=== PATIENT | female | born 1940 | race Caucasian/White ===

== ENCOUNTER 2017-05-07 09:12 | Observation (INO) | payer MEDICARE, OTHER ==
--- NOTE | 2017-05-07 09:34 | ER Document Report ---
ED Medical Screen (RME) - General Chief Complaint: Chest Pain > 30 Stated Complaint: CHEST PAIN Time Seen by Provider: 05/07/17 09:31 TRAVEL OUTSIDE OF THE [place] IN LAST 30 DAYS: No - HPI Patient complains to provider of: Chest Pain Onset: Other - 5 days Quality of pain: Achy Severity: Moderate Pain Level: 3 Exacerbated by: Supine Relieved by: Denies Similar symptoms previously: Yes Notes: 05/07/17 09:32 Patient is a 76-year-old female with a history of coronary artery disease as well as breast cancer, who presents to the emergency room complaining of left- sided chest pain just below her left breast this been going on for the past 4-5 days, she states it is worse when she tries to lay down flat at night and has to sleep on several pillows at night because of the discomfort, she reports a history of [place] in 1997 with stent placement a few years later, breast cancer with a right-sided mastectomy, she denies any cough, cold or congestion, no fever or chills, patient is a former smoker Care is [facility], cardiology is Dr. Parry - Related Data Smoking: Quit greater than 1 year Allergies/Adverse Reactions: amoxicillin [Amoxicillin] Allergy (Severe, Verified 05/07/17 09:14) Hives levofloxacin [From Levaquin] Allergy (Intermediate, Verified 05/07/17 09:14) kidney pain Past Medical History - Past Medical History Cardiac Medical History: Reports: Hx Coronary Artery Disease, Hx Heart Attack - 1997, Hx Hypertension Pulmonary Medical History: Reports: Hx Pneumonia Denies: Hx Asthma, Hx Bronchitis, Hx COPD Neurological Medical History: Denies: Hx Cerebrovascular Accident, Hx Seizures Renal/ Medical History: Denies: Hx Peritoneal Dialysis GI Medical History: Reports: Hx Hiatal Hernia. Denies: Hx Hepatitis, Hx Ulcer Musculoskeltal Medical History: Reports Hx Arthritis Infectious Medical History: Denies: Hx Hepatitis Past Surgical History: Reports: Hx Hysterectomy, Hx Mastectomy - restricted right side. Denies: Hx Open Heart Surgery, Hx Pacemaker - Immunizations Hx Diphtheria, Pertussis, Tetanus Vaccination: No - unsure Physical Exam - Vital signs Vitals: Temp Pulse Resp BP Pulse Ox 98.1 F 69 18 137/76 H 98 05/07/17 09:17 05/07/17 09:17 05/07/17 09:17 05/07/17 09:17 05/07/17 09:17 Course - Vital Signs Vital signs: Temp Pulse Resp BP Pulse Ox 98.1 F 69 18 137/76 H 98 05/07/17 09:17 05/07/17 09:17 05/07/17 09:17 05/07/17 09:17 05/07/17 09:17
--- NOTE | 2017-05-07 09:52 | EKG REPORT ---
SEVERITY:- BORDERLINE ECG - SINUS RHYTHM BORDERLINE INFERIOR Q WAVES : Confirmed by: Jackie Perez 07-May-2017 09:51:52
--- NOTE | 2017-05-07 09:59 | RADIOLOGY REPORT (SQ) ---
EXAM DESCRIPTION: CHEST PA/LAT COMPLETED DATE/TIME: 05/07/2017 9:48 am REASON FOR STUDY: chest pain COMPARISON: January 2016 EXAM PARAMETERS: NUMBER OF VIEWS: two views TECHNIQUE: Digital Frontal and Lateral radiographic views of the chest acquired. RADIATION DOSE: NA LIMITATIONS: none FINDINGS: LUNGS AND PLEURA: No opacities, masses or pneumothorax. No pleural effusion. MEDIASTINUM AND HILAR STRUCTURES: No masses or contour abnormalities. HEART AND VASCULAR STRUCTURES: Heart normal size. No evidence for failure. BONES: No acute findings. HARDWARE: Surgical clips are again identified in the right axillary region. OTHER: No other significant finding. IMPRESSION: NO SIGNIFICANT RADIOGRAPHIC FINDING IN THE CHEST. TECHNICAL DOCUMENTATION: JOB ID: [id number] [employer]- All Rights Reserved
[2017-05-07 10:08] LABS: ABSOLUTE BASOPHILS # (AUTO) 0.1 10^3/uL (0.0-0.2); ABSOLUTE EOSINOPHILS # (AUTO) 0.1 10^3/uL (0.0-0.6); ABSOLUTE LYMPHOCYTES (AUTO) 1.3 10^3/uL (0.5-4.7); ABSOLUTE MONOCYTES (AUTO) 0.6 10^3/uL (0.1-1.4); BASOPHILS % (AUTO) 1.1 % (0-2); EOSINOPHILS % (AUTO) 1.9 % (0-6); HEMATOCRIT 41.6 % (36.0-47.0); HEMOGLOBIN 13.9 g/dL (12.0-15.5); HGB HCT DIFFERENCE 0.1; LYMPHOCYTES % (AUTO) 18.5 % (13-45); MEAN CORPUSCULAR HEMOGLOBIN 31.5 pg (27.0-33.4); MEAN CORPUSCULAR HGB CONC 33.4 g/dL (32.0-36.0); MEAN CORPUSCULAR VOLUME 94 fl (80-97); PROTHROMBIN TIME 12.6 SEC (11.4-15.4); RED BLOOD COUNT 4.41 10^6/uL (3.72-5.28); RED CELL DISTRIBUTION WIDTH 12.9 % (11.5-14.0); SEGMENTED NEUTROPHILS % (AUTO) 70.5 % (42-78); WHITE BLOOD COUNT 7.1 10^3/uL (4.0-10.5)
[2017-05-07 10:25] LABS: ALANINE AMINOTRANSFERASE 23 U/L (9-52); ALBUMIN 4.2 g/dL (3.5-5.0); ALKALINE PHOSPHATASE 56 U/L (38-126); ANION GAP 11 (5-19); ASPARTATE AMINO TRANSFERASE 25 U/L (14-36); BILIRUBIN,DIRECT 0.3 mg/dL (0.0-0.4); BILIRUBIN,TOTAL 0.5 mg/dL (0.2-1.3); BLOOD UREA NITROGEN 11 mg/dL (7-20); CALCIUM 10.2 mg/dL (8.4-10.2); CARBON DIOXIDE 29 mmol/L (22-30); CHLORIDE 106 mmol/L (98-107); CREATINE KINASE 35 U/L (30-135); CREATININE RESULT 0.71 mg/dL (0.52-1.25); GLUCOSE 90 mg/dL (75-110); POTASSIUM 4.4 mmol/L (3.6-5.0); SODIUM 145.7 mmol/L (137-145)
[2017-05-07 10:37] LABS: CREATINE KINASE MB 0.41 ng/mL (<4.55)
[2017-05-07 10:40] LABS: TROPONIN I < 0.012 ng/mL
--- NOTE | 2017-05-07 10:50 | ER Document Report ---
ED General - General Chief Complaint: Chest Pain > 30 Stated Complaint: CHEST PAIN Time Seen by Provider: 05/07/17 09:31 Mode of Arrival: Ambulatory Information source: Patient Notes: 76-year-old female presents with complaints of chest pain. Patient notes she has a history of [place] with stent. Patient is on Plavix denies any fevers or chills nausea vomiting or diarrhea TRAVEL OUTSIDE OF THE [place] IN LAST 30 DAYS: No - HPI Onset: Just prior to arrival Onset/Duration: Sudden Quality of pain: Pressure Severity: Mild Pain Level: 1 Associated symptoms: Chest pain Exacerbated by: Denies Relieved by: Denies Similar symptoms previously: Yes Recently seen / treated by doctor: Yes - Related Data Allergies/Adverse Reactions: amoxicillin [Amoxicillin] Allergy (Severe, Verified 05/07/17 09:14) Hives levofloxacin [From Levaquin] Allergy (Intermediate, Verified 05/07/17 09:14) kidney pain Past Medical History - Social History Smoking Status: Never Smoker Cigarette use (# per day): No Chew tobacco use (# tins/day): No Smoking Education Provided: No Family History: CAD Patient has suicidal ideation: No Patient has homicidal ideation: No - Past Medical History Cardiac Medical History: Reports: Hx Coronary Artery Disease, Hx Heart Attack - 1997, Hx Hypertension Pulmonary Medical History: Reports: Hx Pneumonia Denies: Hx Asthma, Hx Bronchitis, Hx COPD Neurological Medical History: Denies: Hx Cerebrovascular Accident, Hx Seizures Renal/ Medical History: Denies: Hx Peritoneal Dialysis GI Medical History: Reports: Hx Hiatal Hernia. Denies: Hx Hepatitis, Hx Ulcer Musculoskeltal Medical History: Reports Hx Arthritis Infectious Medical History: Denies: Hx Hepatitis Past Surgical History: Reports: Hx Hysterectomy, Hx Mastectomy - restricted right side. Denies: Hx Open Heart Surgery, Hx Pacemaker - Immunizations Hx Diphtheria, Pertussis, Tetanus Vaccination: No - unsure Hx Pneumococcal Vaccination: 08/26/13 Review of Systems - Review of Systems Notes: REVIEW OF SYSTEMS: CONSTITUTIONAL : Denies fever, chills, or sweats. Denies recent illness. EENT: Denies eye, ear, throat, or mouth pain or symptoms. Denies nasal or sinus congestion or discharge. Denies throat, tongue, or mouth swelling or difficulty swallowing. CARDIOVASCULAR: Chest RESPIRATORY: Denies cough, cold, or chest congestion. Denies shortness of breath, difficulty breathing, or wheezing. GASTROINTESTINAL: Denies abdominal pain or distention. Denies nausea, vomiting , or diarrhea. Denies blood in vomitus, stools, or per rectum. Denies black, tarry stools. Denies constipation. GENITOURINARY: Denies difficulty urinating, painful urination, burning, frequency, blood in urine, or discharge. FEMALE GENITOURINARY: Denies vaginal bleeding, heavy or abnormal periods, irregular periods. Denies vaginal discharge or odor. MUSCULOSKELETAL: Denies back or neck pain or stiffness. Denies joint pain or swelling. SKIN: Denies rash, lesions or sores. HEMATOLOGIC : Denies easy bruising or bleeding. LYMPHATIC: Denies swollen, enlarged glands. NEUROLOGICAL: Denies confusion or altered mental status. Denies passing out or loss of consciousness. Denies dizziness or lightheadedness. Denies headache. Denies weakness or paralysis or loss of use of either side. Denies problems with gait or speech. Denies sensory loss, numbness, or tingling. Denies seizures. PHYSICAL EXAMINATION: GENERAL: Well-appearing, well-nourished and in no acute distress. HEAD: Atraumatic, normocephalic. EYES: Pupils equal round and reactive to light, extraocular movements intact, conjunctiva are normal. ENT: Nares patent, oropharynx clear without exudates. Moist mucous membranes. NECK: Normal range of motion, supple without lymphadenopathy LUNGS: Breath sounds clear to auscultation bilaterally and equal. No wheezes rales or rhonchi. HEART: Regular rate and rhythm without murmurs ABDOMEN: Soft, nontender, nondistended abdomen. No guarding, no rebound. No masses appreciated. Female : deferred Musculoskeletal: Normal range of motion, no pitting or edema. No cyanosis. NEUROLOGICAL: Cranial nerves grossly intact. Normal speech, normal gait. Normal sensory, motor exams PSYCH: Normal mood, normal affect. SKIN: Warm, Dry, normal turgor, no rashes or lesions noted. PSYCHIATRIC: Denies anxiety or stress. Denies depression, suicidal ideation, or homicidal ideation. ALL OTHER SYSTEMS REVIEWED AND NEGATIVE. Dictation was performed using [employer] voice recognition software Physical Exam - Vital signs Vitals: Temp Pulse Resp BP Pulse Ox 98.1 F 69 18 137/76 H 98 05/07/17 09:17 05/07/17 09:17 05/07/17 09:17 05/07/17 09:17 05/07/17 09:17 Course - Re-evaluation Re-evalutation: 05/07/17 16:19 My examination patient does admit to chest pain, she is in no distress at this time. She took a nitroglycerin last night which resolved her pain Patient has a stress test yearly however her it coordinator did not perform one this year yet will admit for observation for ACS rule out - Vital Signs Vital signs: Temp Pulse Resp BP Pulse Ox 98.0 F 66 16 131/66 H 100 05/07/17 14:04 05/07/17 14:04 05/07/17 14:04 05/07/17 14:04 05/07/17 14:04 - Laboratory Result Diagrams: 05/07/17 09:41 05/07/17 09:41 Laboratory results interpreted by me: 05/07/17 09:41 Sodium 145.7 H - Diagnostic Test Radiology reviewed: Image reviewed, Reports reviewed - EKG Interpretation by Me EKG shows normal: Sinus rhythm, [place], Intervals, QRS Complexes Discharge - Discharge Clinical Impression: Chest pain Qualifiers: Chest pain type: unspecified Qualified Code(s): R07.9 - Chest pain, unspecified HTN (hypertension) Qualifiers: Hypertension type: essential hypertension Qualified Code(s): I10 - Essential ( primary) hypertension Condition: Stable Disposition: ADMITTED OBSERVATION Admitting Provider: Hospitalist Unit Admitted: Telemetry
[2017-05-07] MEDS ORDERED: ACETAMINOPHEN 325 MG TABLET PO PRN (11:39)
[2017-05-07] MEDS ORDERED: MORPHINE SULFATE 10 MG/ML INJ IV PRN (12:19)
--- NOTE | 2017-05-07 12:19 | PDOC H&P ---
History of Present Illness Admission Date/PCP: 05/07/17 11:08 History of Present Illness: MAYA CUBA is a 76 year old white female past medical history significant for [place] status post stents back in 1997, hypertension, and history of breast cancer who presents to the service with complaints of chest pain. Patient's symptoms started on evening. It awoke her out of sleep. she Described the pain as a heavy weight sitting on her chest underneath her left breast. She and described it as a 5 out of 10 discomfort. At some point she felt that her left arm was hurting but did not associate that with her chest discomfort. She took nitroglycerin which offered her relief. She noticed that she could not sleep flat and ended up sleeping in a chair that night. Sunday Morning she felt better as well as on Sunday. Fortunately her pain returned on Sunday and she began having the same sensation that she rated at a 5 out of 10. She took another nitroglycerin which reduced her pain down to a 3 out of 10. At this point her pain began feeling more like a burning sensation. The patient notes that she has underlying GERD and that her GERD is somewhat controlled on Zantac. She does not recall injuring herself at all but she states that on Sunday she went to [facility] and lifted a case of water. she Denies a history of anxiety. She States that she had slight shortness of breath with these episodes. It usually follows with Dr. Wing. She usually sees him at least once a year. Her last stress test was a year and a half ago. It was normal. In the emergency room, the patient received EKG which was negative. Troponins were negative. Past Medical History Cardiac Medical History: Reports: Coronary Artery Disease, Myocardial Infarction - 1997, Hypertension Pulmonary Medical History: Reports: Pneumonia Malignancy Medical History: Reports: Breast Cancer - Status post right mastectomy. The patient has been in remission for 15 yrs GI Medical History: Reports: Hiatal Hernia Musculoskeltal Medical History: Reports: Arthritis Hematology: Reports: Anemia Past Surgical History Past Surgical History: Reports: Hysterectomy, Mastectomy - restricted right side Social History Information Source: Patient Smoking Status: Current Some Day Smoker - The patient quit years ago. she started at the age of 16. Frequency of Alcohol Use: None Hx Recreational Drug Use: No Hx Prescription Drug Abuse: No Family History Family History: CAD Parental Family History Reviewed: Yes Children Family History Reviewed: Yes Sibling(s) Family History Reviewed.: Yes Medication/Allergy Home Medications: Aspirin [Aspirin 81 mg Chewable Tablet] 1 tab PO DAILY 03/13/12 Metoprolol Tartrate [Lopressor 50 mg Tablet] 25 mg PO DAILY 12/10/13 Simvastatin [Zocor 10 mg Tablet] 10 mg PO QHS 12/10/13 Clopidogrel Bisulfate [Plavix 75 mg Tablet] 75 mg PO DAILY #30 tablet 12/11/13 Diltiazem HCl [Cardizem Cd 120 mg Capsule] 1 cap.sr PO DAILY 02/09/16 Ranitidine HCl [Zantac 150 mg Tablet] 150 mg PO BID #60 tablet 02/10/16 Ascorbic Acid [Vitamin C] 1 tab PO DAILY 05/12/16 Cyclobenzaprine HCl [Flexeril 10 mg Tablet] 1 tab PO DAILY 05/12/16 Hubbard-3 Fatty Acids [Fish Oil] 1 tab PO DAILY 05/12/16 Ubidecarenone [Co Q-10] 1 tab PO DAILY 05/12/16 Vitamin E 1 cap PO DAILY PRN 05/12/16 Allergies/Adverse Reactions: amoxicillin [Amoxicillin] Allergy (Severe, Verified 05/07/17 09:14) Hives levofloxacin [From Levaquin] Allergy (Intermediate, Verified 05/07/17 09:14) kidney pain Review of Systems Review of Systems: Illicit systems is pertinent as per HPI in addition to this the patient states that she has had trouble with dysuria and dribbling, cold intolerance, burning of the feet, occasional, the patient and occasional dizziness. She denies blood in the stool, blood in the urine, coughing up blood, vomiting blood, fevers, chills, nausea, vomiting, severe arthritis, diarrhea, and vision changes. Physical Exam Vital Signs: Temp Pulse Resp BP Pulse Ox 98.1 F 69 18 137/76 H 98 05/07/17 09:17 05/07/17 09:17 05/07/17 09:17 05/07/17 09:17 05/07/17 09:17 Physical Exam: General: Well-developed well-nourished appearing white female resting in bed currently in no acute distress HEENT: Normocephalic atraumatic. Trachea is midline. No submandibular lymphadenopathy. No thyromegaly. No Scleral icterus. Moist mucous membranes Heart: Regular rate and rhythm. No murmurs rubs or gallops. Lungs: Clear to auscultation bilaterally with equal rise and fall of the chest. Abdomen: Soft nontender nondistended. Active bowel sounds Extremities: No clubbing cyanosis or edema. 5 out of 5 strength in the upper and lower extremities bilaterally. Pulses are 2+ bilaterally. Neuro: Awake alert oriented. Cranial nerves II through XII are specifically intact. Results Impressions: Chest X-Ray 05/07/17 00:00 IMPRESSION: NO SIGNIFICANT RADIOGRAPHIC FINDING IN THE CHEST. Assessment & Plan - Diagnosis (1) Chest pain Qualifiers: Chest pain type: unspecified Qualified Code(s): R07.9 - Chest pain, unspecified Plan: We will bring the patient in for observation. Trend troponins. And obtain a stress test in the morning. RAFA as needed. Do not suspect acute coronary syndrome. If her stress test is negative, her discomfort may be related to uncontrolled GERD versus musculoskeletal discomfort (2) HTN (hypertension) Plan: Continue home medications after they are verified. (3) GERD (gastroesophageal reflux disease) Plan: Zantac. (4) History of breast cancer Plan: Patient is status post right mastectomy. She has been in remission for the last 15 years. - Time Time Spent: 30 to 50 Minutes - Inpatient Certification Based on my medical assessment, after consideration of the patient's comorbidities, presenting symptoms, or acuity I expect that the services needed warrant INPATIENT care.: No Medical Necessity: Risk of Diagnosis Which Will Require Inpatient Eval/Care/ Monitoring - Plan Summary Plan Summary: Anticipate less than 2 midnight stay.
[2017-05-07] MEDS ORDERED: NITROGLYCERIN 0.4 MG/TAB 25 TAB/BOTTLE SL PRN (12:20)
[2017-05-07] MEDS: FAMOTIDINE 20 MG TABLET PO SCH (21:55)
[2017-05-07] MEDS ORDERED: SIMVASTATIN 10 MG TABLET PO SCH (22:00)
[2017-05-07] MEDS ORDERED: (PENDING PHARMACY ID) (Ranitidine Hcl [Zantac 150 Mg Tablet] 150 MG) PO SCH (22:00)
[2017-05-08] MEDS ORDERED: CLOPIDOGREL BISULFATE 75 MG TABLET PO SCH (10:00)
[2017-05-08] MEDS ORDERED: ASPIRIN 325 MG TABLET, ENT COATED PO SCH (10:00)
[2017-05-08] MEDS ORDERED: METOPROLOL SUCCINATE 50 MG TAB.SR.24H PO SCH (10:00)
[2017-05-08] MEDS ORDERED: DILTIAZEM HCL 120 MG PO SCH (10:00)
[2017-05-08] MEDS ORDERED: ASCORBIC ACID 500 MG TABLET PO SCH (10:00)
[2017-05-08] MEDS ORDERED: DILTIAZEM HCL 120 MG CAP.SR.24H PO SCH (10:00)
[2017-05-08] MEDS: FAMOTIDINE 20 MG TABLET PO SCH (10:49)
--- NOTE | 2017-05-08 13:24 | DRAGON STRESS TEST REPORT ---
INTRAVENOUS LEXISCAN CARDIOLITE STRESS TEST USING SINGLE PHOTON EMMISION COMPUTERIZED TOMOGRAPHIC. DATE OF PROCEDURE: May 08, 2017 INDICATION : Chest pain CARDIAC RISK FACTORS: Hypertension, dyslipidemia, tobacco abuse, family history of CAD, known CAD with prior stent placement RESTING EKG: Sinus rhythm without any baseline ST segment changes STRESS EKG: No significant changes noted with LexiScan bolus REASON FOR TERMINATION: Protocol. PROCEDURE REPORT: Baseline heart rate 76 beats per minute with blood pressure of 133/71. Patient had no significant complaints. Heart rate at 2 minutes post bolus 95 with a blood pressure of 141/78. 3 minutes post bolus heart rate 90 with blood pressure of 139/77. No significant EKG changes were noted. Patient had no significant complaints during the procedure or postprocedure. Patient injected with Aminophyllin 75 mg at 3 minutes or later after Lexiscan bolus. CONCLUSIONS: Normal EKG and hemodynamic response to IV LexiScan. NUCLEAR DATA: At rest the patient was given 9.54 millicuries of technetium 99 sestamibi injected intravenously. As per protocol rest gated SPECT images were obtained. Subsequently the patient was given intravenous LexiScan at a dose of 0.4 mg in 5 mL intravenously, followed by flush with normal saline. Subsequently the stress dose of 31.0 millicuries of technetium 99 sestamibi was injected intravenously. As per protocol stress gated images were obtained. NUCLEAR INTERPRETATION: Both raw and processed data were used for interpretation. Visual, qualitative, computer-generated quantitative data was used. There was good myocardial uptake of technetium compound. Motion artifact and soft tissue attenuations were noted. Increased visceral uptake was noted. No definitive areas of transient perfusion defect noted. No definitive areas of fixed perfusion defect or scars noted. EKG gated imaging showed LV EF at 75 %, rest and stress gated EF similar visually. T. I D. ratio was 1.33. This is mildly increased. LV cavity was however noted to be very small therefore any changes will be exaggerated. Lung heart ratio noted to be within normal limits 0.26. No significant extracardiac and abnormal radiotracer activities were noted. RV free wall uptake was noted to be WNL. IMPRESSION: Also refer to comments under nuclear interpretation. Also test results needs to be interpreted in the context of pretest probability. 1. There is no definitive scintigraphic evidence of LexiScan induced myocardial ischemia. 2. There is no definitive scintigraphic evidence of myocardial infarction/scar. 3. EKG gated imaging shows left ejection fraction of approximately 75 %. 4. Mild transient ischemic dilatation noted. LV cavity was noted to be rather small as was the heart size therefore any changes will be exaggerated. Also recent literature review shows no significant increased cardiovascular event rate in the absence of perfusion abnormalities. However older literature suggest that balanced ischemia could be missed. Clinical correlation requested as occasionally worse disease or balanced ischemia could be missed. In approximately 10% of the cases Lexiscan may not cause adequate vasodilatory stress. RECOMMENDATIONS: Aggressive risk factor modification, medical therapy. Clinical correlation with echocardiogram derived ejection fraction. Inability to exercise by itself can lead to increased cardiovascular event risks. Consider cardiology consultation and or follow-up if clinically indicated. I AM AVAILABLE FOR CARDIOLOGY CONSULTATION AND FOLLOWUP IF REQUESTED BY BENI Perez M.D., [employer] Administrator tube bender hand, Board certified in cardiovascular diseases, Nuclear cardiology, Echocardiography Cardiac CT and cardiac MRI Ph. [phone] [facility] CENTERRamakrishna
[2017-05-08] MEDS ORDERED: REGADENOSON INJ 0.4 MG/5 ML DISP.SYRIN IV ONE (13:42)
[2017-05-08] MEDS ORDERED: AMINOPHYLLINE INJ/PF 250 MG/10 ML SDV IV ONE (13:42)
[2017-05-08 15:06] VITALS: BP 109/55
--- NOTE | 2017-05-08 17:39 | PDOC DISCHARGE SUMMARY ---
General - Admit/Disc Date/PCP Admission Date/Primary Care Provider: 05/07/17 11:39 Discharge Date: 05/08/17 - Discharge Diagnosis (1) Chest pain Is this a current diagnosis for this admission?: YesSummary: most likely GI source, she r/o'd for acute myocardial ischemia with negative enzymes and negative cardiolyte stress test. she has f/u GI appt in one month for upper endoscopy already scheduled. start PPI bid and instructed to return to the ED for worsening condition or escalating symptoms. (2) GERD (gastroesophageal reflux disease) Is this a current diagnosis for this admission?: YesSummary: as above (3) HTN (hypertension) Is this a current diagnosis for this admission?: YesSummary: well controlled, continue current regimen - Additional Information Resuscitation Status: Full Code Discharge Diet: Cardiac Discharge Activity: Activity As Tolerated Home Medications: Ascorbic Acid [Vitamin C] 1,000 mg PO DAILY 05/07/17 Aspirin [Aspirin 81 mg Chewable Tablet] 81 mg PO DAILY 05/07/17 Clopidogrel Bisulfate [Plavix 75 mg Tablet] 75 mg PO DAILY 05/07/17 Cyanocobalamin (Vitamin B-12) [Vitamin B-12 1000 mcg Tablet] 1,000 mcg PO DAILY 05/07/17 Diltiazem HCl [Tiazac] 120 mg PO DAILY 05/07/17 Fish Oil/Dha/Epa [Fish Oil 1,200 mg Fish Oil] 1,200 mg PO DAILY 05/07/17 Folic Acid 0.4 mg PO DAILY 05/07/17 Metoprolol Succinate [Toprol Xl 50 mg Tab.sr] 50 mg PO DAILY 05/07/17 Pyridoxine HCl [Vitamin B-6] 100 mg PO DAILY 05/07/17 Simvastatin [Zocor 10 mg Tablet] 10 mg PO Q2D@2200 05/07/17 Ubidecarenone [Co Q-10] 100 mg PO DAILY 05/07/17 Vitamin E 400 unit PO DAILY 05/07/17 Pantoprazole Sodium [Protonix] 40 mg PO BID #60 tablet. 05/08/17 History of Present Illness Patient complains of: chest pain History of Present Illness: MAYA CUBA is a 76 year old female past medical history significant for WI status post stents back in 1997, hypertension, and history of breast cancer who presents to the service with complaints of chest pain. Hospital Course Hospital Course: Patient's symptoms started on evening. It awoke her out of sleep. she Described the pain as a heavy weight sitting on her chest underneath her left breast. She and described it as a 5 out of 10 discomfort. At some point she felt that her left arm was hurting but did not associate that with her chest discomfort. She took nitroglycerin which offered her relief. She noticed that she could not sleep flat and ended up sleeping in a chair that night. Sunday Morning she felt better as well as on Sunday. Fortunately her pain returned on Sunday and she began having the same sensation that she rated at a 5 out of 10. She took another nitroglycerin which reduced her pain down to a 3 out of 10. At this point her pain began feeling more like a burning sensation. The patient notes that she has underlying GERD and that her GERD is somewhat controlled on Zantac. She does not recall injuring herself at all but she states that on Sunday she went to [facility] and lifted a case of water. she Denies a history of anxiety. She States that she had slight shortness of breath with these episodes. It usually follows with Dr. Wing. She usually sees him at least once a year. Her last stress test was a year and a half ago. It was normal. In the emergency room, the patient received EKG which was negative. Troponins were negative. she underwent cardiolyte testing and that too was negative. she had no recurrence of her symptoms since admission including during the test. she is anxious for and stable to d/c home at this time. Physical Exam Vital Signs: Temp Pulse Resp BP Pulse Ox 98.1 F 70 16 109/55 L 100 05/08/17 15:03 05/08/17 15:03 05/08/17 15:03 05/08/17 15:03 05/08/17 15:03 Intake & Output 05/07/17 05/08/17 05/09/17 06:59 06:59 06:59 Intake Total 370 Output Total 1100 Balance -730 Weight 55.33 kg General appearance: PRESENT: no acute distress, well-developed, well-nourished Head exam: PRESENT: atraumatic, normocephalic Eye exam: ABSENT: conjunctival injection, scleral icterus Neck exam: PRESENT: full ROM. ABSENT: tracheal deviation Respiratory exam: PRESENT: clear to auscultation kylee. ABSENT: accessory muscle use Cardiovascular exam: PRESENT: RRR. ABSENT: systolic murmur Pulses: PRESENT: normal radial pulses Musculoskeletal exam: PRESENT: ambulatory, full ROM Neurological exam: PRESENT: alert, awake, oriented to person, oriented to place , oriented to time, oriented to situation Results Laboratory Results: 05/07/17 05/07/17 15:32 22:18 Troponin I < 0.012 < 0.012 Impressions: Chest X-Ray 05/07/17 00:00 IMPRESSION: NO SIGNIFICANT RADIOGRAPHIC FINDING IN THE CHEST. Qualifiers PATEINT BEING DISCHARGED WITH ANY OF THE FOLLOWING DIAGNOSIS?: No VTE patient discharged on overlapping Therapy?: No Reason(s) for not prescribing Overlap Therapy:: Not indicated Plan Discharge Plan: f/u PCP in one week, return to the ED for worsening symptoms; keep scheduled appt with GI in one month Time Spent: Greater than 30 Minutes - care plan and test results reviewed with she and her
== END 2017-05-08 15:04 | disposition home or self-care (01) ==
LOC: ER 09:12 → UNDOADMOB 11:08 → EH 11:08 → 4W 13:10
PROVIDERS: ADMIT Hospitalist; ATTEND Hospitalist
DX: R07.89 Other chest pain (principal); K21.9 Gastro-esophageal reflux disease without esophagitis; I10 Essential (primary) hypertension; I25.2 Old myocardial infarction; R06.02 Shortness of breath; N39.43 Post-void dribbling; I25.10 Atherosclerotic heart disease of native coronary artery without angina pectoris; R30.0 Dysuria; R20.8 Other disturbances of skin sensation; M19.90 Unspecified osteoarthritis, unspecified site; Z79.02 Long term (current) use of antithrombotics/antiplatelets; Z95.5 Presence of coronary angioplasty implant and graft; Z79.899 Other long term (current) drug therapy; Z79.82 Long term (current) use of aspirin; Z85.3 Personal history of malignant neoplasm of breast; Z90.11 Acquired absence of right breast and nipple; Z80.49 Family history of malignant neoplasm of other genital organs; Z87.891 Personal history of nicotine dependence; Z90.710 Acquired absence of both cervix and uterus
CPT/HCPCS: 93005; 99285; 36415; 82553; 82550; 85025; 85610; 80053; 84484; 83880; 93017; 71020; 78452; 93010; G0378 ×3; A9500; J2785; A9270 ×8; J3490 ×2; J0280; Q9969

== ENCOUNTER 2017-06-12 09:01 | Day surgery (SDC) | payer MEDICARE, OTHER ==
[~2017-06-12 09:01] MED LIST: EPINEPHRINE INJ 1 MG/10 ML DISP.SYRIN ONE; FENTANYL CITRATE INJ/PF 100 MCG/2 ML AMPUL ONE; FLUMAZENIL INJ 0.5 MG/5 ML VIAL IV ONE; GLYCOPYRROLATE INJ 0.4 MG/2 ML VIAL ONE; MIDAZOLAM 2 MG/2 ML INJ ONE; NALOXONE HCL INJ/PF 0.4 MG/1 ML SDV ONE; ONDANSETRON HCL INJ/PF 4 MG/2 ML SDV ONE
--- NOTE | 2017-06-12 10:01 | HISTORY AND PHYSICAL E ---
History and Physical NAME: MAYA CUBA : 1940 AGE: 76Y ADMITTED: 06/12/2017 ROOM: CHIEF COMPLAINT: Atypical reflux. HISTORY OF PRESENT ILLNESS: Upper endoscopy 2005 showing esophagitis, gastritis, duodenitis. At the time she was a patient of Dr. Corcoran. The patient does have a history of upper scope in the past. She does have a history of breast cancer. She is followed by Dr. SPARROW. The patient did have colonoscopy 2008 for left upper quadrant abdominal pain, history of reflux and gastric polyps. PHYSICAL EXAMINATION: VITAL SIGNS: Blood pressure 140/70, pulse 80, respirations 20, temperature is 98. HEAD, EYES, EARS, NOSE AND THROAT: Normal. ABDOMEN: Soft. NEUROLOGIC EXAM: Negative. Colonoscopy done 2013: Upper scope with no stricture, no ulcers. Mild esophagitis, gastritis and duodenitis. Colonoscopy was done. She does have history of adenoma of polyps. She did have right mastectomy, hysterectomy. The patient did have sigmoid polyp 2-3 mm, sessile polyp cecum. Adenoma polyp sigmoid colon. MEDICATIONS: Plavix, simvastatin, metoprolol, baby aspirin, fish oil. CONCLUSION: Atypical reflux. PLAN: Upper scope for atypical reflux, scheduled for June 12. DICTATING PHYSICIAN: JOE PIÑA M.D. [id number] [facility]#: [id number] ID: [id number] JOB#: [id number] ACCT: [id number] cc:Giovani DIAMOND M.D. >
[2017-06-12 11:02] LABS: ABSOLUTE BASOPHILS # (AUTO) 0.1 10^3/uL (0.0-0.2); ABSOLUTE EOSINOPHILS # (AUTO) 0.2 10^3/uL (0.0-0.6); ABSOLUTE LYMPHOCYTES (AUTO) 1.3 10^3/uL (0.5-4.7); ABSOLUTE MONOCYTES (AUTO) 0.4 10^3/uL (0.1-1.4); ABSOLUTE NEUT (AUTO) 3.1 10^3/uL (1.7-8.2); BASOPHILS % (AUTO) 1.9 % (0-2); EOSINOPHILS % (AUTO) 3.4 % (0-6); HEMATOCRIT 38.2 % (36.0-47.0); HGB HCT DIFFERENCE 0.8; LYMPHOCYTES % (AUTO) 26.1 % (13-45); MEAN CORPUSCULAR HEMOGLOBIN 31.7 pg (27.0-33.4); MEAN CORPUSCULAR HGB CONC 33.9 g/dL (32.0-36.0); MEAN CORPUSCULAR VOLUME 93 fl (80-97); MONOCYTES % (AUTO) 8.8 % (3-13); RED CELL DISTRIBUTION WIDTH 13.3 % (11.5-14.0); SEGMENTED NEUTROPHILS % (AUTO) 59.8 % (42-78); WHITE BLOOD COUNT 5.1 10^3/uL (4.0-10.5)
[2017-06-12 11:13] VITALS: BP 132/69
--- NOTE | 2017-06-12 13:21 | OPERATIVE REPORT E ---
Operative Report NAME: MAYA CUBA : 1940 AGE: 76Y DATE OF SURGERY: 06/12/2017 ROOM: PREOPERATIVE DIAGNOSIS: Abdominal pain. POSTOPERATIVE DIAGNOSES: 1. Esophageal spasm. 2. Mild gastritis. PROCEDURE: Esophagoscopy, gastroscopy, duodenoscopy. SURGEON: JOE PIÑA M.D. ANESTHESIA: Versed 2 mg and Fentanyl 50 mcg. TISSUE REMOVED OR ALTERED: Gastric biopsy for H. pylori. PROCEDURE: After adequate sedation the baby scope was passed under guided vision, no difficulties. Esophagoscopy: Junction at 35 cm, distal esophageal spasm, no evidence of ulcers, no strictures, just esophageal spasm. Gastroscopy: Mild gastritis, biopsy obtained for H. pylori. Duodenoscopy: Bulb descending, no ulcers, mild duodenitis. CONCLUSIONS: Upper endoscopy shows no ulcers, no malignancy, esophageal spasm, and mild gastritis. DISCHARGE PLAN: Assurance. Awaiting biopsy results. DICTATING PHYSICIAN: JOE PIÑA M.D. [id number] Y#: [id number] ID: [id number] JOB#: [id number] ACCT: [id number] cc:Giovani DIAMOND M.D. >
--- NOTE | 2017-06-12 13:28 | DISCHARGE SUMMARY E ---
Discharge Summary NAME: MAYA CUBA : 1940 AGE: 76Y ADMITTED: 06/12/2017 DISCHARGED: 06/12/2017 PROCEDURE: EGD, biopsy. HISTORY: A 76-year-old female who is allergic to AMOXICILLIN and LEVAQUIN, underwent upper scope today that shows no ulcers. She did have mild esophagitis with esophageal spasm, mild gastritis. No ulcers, no malignancy. DISCHARGE PLAN: Soft diet. Hold Plavix 3 days. Baseline CBC. Awaiting biopsy results. Patient to see us in the office in the next few days. DICTATING PHYSICIAN: JOE PIÑA M.D. [id number] PHY#: [id number] ID: [id number] JOB#: [id number] ACCT: [id number] cc:Giovani DIAMOND M.D. >
== END 2017-06-12 11:10 | disposition home or self-care (01) ==
LOC: END 09:01
PROVIDERS: ATTEND Specialist
PROC: 0DB68ZX Excision of Stomach, Via Natural or Artificial Opening Endoscopic, Diagnostic (ICD-10-PCS; principal; 2017-06-12 10:00)
DX: K21.0 Gastro-esophageal reflux disease with esophagitis (principal); K22.4 Dyskinesia of esophagus; K31.9 Disease of stomach and duodenum, unspecified; K29.80 Duodenitis without bleeding; Z85.3 Personal history of malignant neoplasm of breast; Z79.02 Long term (current) use of antithrombotics/antiplatelets; Z79.82 Long term (current) use of aspirin; Z79.899 Other long term (current) drug therapy; Z87.19 Personal history of other diseases of the digestive system; Z88.0 Allergy status to penicillin
CPT/HCPCS: 43239; 36415; 85025; 88305 ×2; J2250; J3010; J0171; J2310; J2405; J3490

== ENCOUNTER 2017-10-30 07:34 | Day surgery (SDC) | payer MEDICARE, OTHER ==
--- NOTE | 2017-10-24 11:01 | HISTORY AND PHYSICAL E ---
History and Physical NAME: MAYA CUBA : 1940 AGE: 77Y ADMITTED: 10/30/2017 ROOM: REFERRING PHYSICIAN: Dr. Marcial CHIEF COMPLAINT: History of polyps. Patient to be done in the OR with anesthesia standby. HISTORY OF PRESENT ILLNESS: Patient is a 76-year-old female. Colonoscopy, December 2014, showed sigmoid polyp adenoma. Patient did have multiple colonoscopies. Upper scope done, May 2017. She was given fentanyl 60 and Versed 2 mg. PAST MEDICAL HISTORY: 1. She does have history of diverticulosis and adenomatous polyps. She did have recent upper endoscopy. 2. History of coronary artery disease. 3. Reflux. SURGERIES: 1. Cholecystectomy. 2. Hysterectomy. 3. Appendectomy. 4. Cardiac cath. ALLERGIES: 1. AMOXICILLIN. 2. LEVAQUIN. MEDICATIONS: 1. Plavix. 2. Aspirin. 3. Fish oil. 4. Simvastatin. 5. Plavix. SOCIAL HISTORY: She does not smoke, does not drink. FAMILY HISTORY: Father , with history of pulmonary emboli. Mom with a stroke. PHYSICAL EXAMINATION: GENERAL: Pleasant, awake, oriented, in no acute distress. VITAL SIGNS: Blood pressure is 140/70, pulse 80, respirations 20, temperature is 98. HEAD, EYES, EARS, NOSE, THROAT: Normal. ABDOMEN: Soft. NEUROLOGIC: Negative. CONCLUSION: Colon screening for history of polyps. PLAN: Admit on 30 of October for colonoscopy to be done in the OR with anesthesia standby. DICTATING PHYSICIAN: JOE PIÑA M.D. [id number] PHY#: [id number] ID: [id number] JOB#: [id number] ACCT: [id number] cc:JOE PIÑA M.D. >
[2017-10-30] MEDS ORDERED: GLYCOPYRROLATE INJ 0.4 MG/2 ML VIAL ONE (07:53)
[2017-10-30] MEDS ORDERED: ONDANSETRON HCL INJ/PF 4 MG/2 ML SDV ONE (07:53)
[2017-10-30] MEDS ORDERED: FLUMAZENIL INJ 0.5 MG/5 ML VIAL ONE (07:54)
[2017-10-30] MEDS ORDERED: MIDAZOLAM 2 MG/2 ML INJ ONE (07:54)
[2017-10-30] MEDS ORDERED: NALOXONE HCL INJ/PF 0.4 MG/1 ML SDV ONE (07:54)
[2017-10-30] MEDS ORDERED: GLUCAGON,HUMAN RECOMB 1 MG INJ ONE (07:54)
[2017-10-30] MEDS ORDERED: EPINEPHRINE INJ 1 MG/10 ML DISP.SYRIN ONE (07:54)
[2017-10-30] MEDS: FENTANYL CITRATE INJ/PF 100 MCG/2 ML AMPUL ONE ×3 (08:18→08:25)
[2017-10-30 09:29] LABS: ABSOLUTE BASOPHILS # (AUTO) 0.1 10^3/uL (0.0-0.2); ABSOLUTE EOSINOPHILS # (AUTO) 0.1 10^3/uL (0.0-0.6); ABSOLUTE LYMPHOCYTES (AUTO) 1.2 10^3/uL (0.5-4.7); ABSOLUTE MONOCYTES (AUTO) 0.5 10^3/uL (0.1-1.4); ABSOLUTE NEUT (AUTO) 3.6 10^3/uL (1.7-8.2); BASOPHILS % (AUTO) 1.2 % (0-2); EOSINOPHILS % (AUTO) 2.3 % (0-6); HEMATOCRIT 36.6 % (36.0-47.0); HEMOGLOBIN 12.7 g/dL (12.0-15.5); HGB HCT DIFFERENCE 1.5; LYMPHOCYTES % (AUTO) 22.1 % (13-45); MEAN CORPUSCULAR HEMOGLOBIN 32.1 pg (27.0-33.4); MEAN CORPUSCULAR HGB CONC 34.8 g/dL (32.0-36.0); MEAN CORPUSCULAR VOLUME 92 fl (80-97); MONOCYTES % (AUTO) 8.2 % (3-13); RED BLOOD COUNT 3.97 10^6/uL (3.72-5.28); SEGMENTED NEUTROPHILS % (AUTO) 66.2 % (42-78); WHITE BLOOD COUNT 5.5 10^3/uL (4.0-10.5)
[2017-10-30 09:34] VITALS: BP 122/52
--- NOTE | 2017-10-30 14:41 | OPERATIVE REPORT E ---
Operative Report NAME: MAYA CUBA : 1940 AGE: 77Y DATE OF SURGERY: 10/30/2017 ROOM: PREOPERATIVE DIAGNOSES: 1. History of polyps. 2. Colon screening. POSTOPERATIVE DIAGNOSES: 1. Sigmoid descending colon diverticulosis. 2. External hemorrhoids. OPERATION: Colonoscopy. SURGEON: JOE PIÑA M.D. ANESTHESIA: Versed 2 and fentanyl 100. TISSUE REMOVED OR ALTERED: None. PROCEDURE: Rectal exam: External hemorrhoids. Sigmoid descending colon diverticulosis. Transverse colon normal. Ascending cecum normal. Scope withdrawn from cecum, ascending, transverse, descending, sigmoid, all the way to the rectum. CONCLUSION: No polyps seen. No bleeding. Diverticulosis sigmoid descending colon. Prep adequate but there was moderate amount of stool, comes out of diverticula during the procedure. No evidence of cancer. No evidence of polyps. PLAN: Consider followup colonoscopy 3 years. DICTATING PHYSICIAN: JOE PIÑA M.D. [id number] PHY#: [id number] ID: [id number] JOB#: [id number] ACCT: [id number] cc:MAHESH SPARROW M.D., MAHMOUD M.D. >
--- NOTE | 2017-10-30 14:43 | DISCHARGE SUMMARY E ---
Discharge Summary NAME: MAYA CUBA : 1940 AGE: 77Y ADMITTED: 10/30/2017 DISCHARGED: 10/30/2017 HISTORY: A 77-year-old female with history of adenoma, polyps, diverticulosis. Today's colon was completed to the cecum. No polyps, no bleeding. Prep was adequate but not optimal. Sigmoid diverticulosis, mild external hemorrhoids. DISCHARGE PLAN: Soft, low-residue diet for 3 days. Hold aspirin, nonsteroidal for 2 days. Continue the rest of the medications. CONCLUSION: Diverticulosis. No polyps, no malignancy. PLAN: I will obtain baseline CBC, CEA. History of polyps. DICTATING PHYSICIAN: JOE PIÑA M.D. [id number] PHY#: [id number] ID: [id number] JOB#: [id number] ACCT: [id number] cc:JOE PIÑA M.D. >
== END 2017-10-30 09:35 | disposition home or self-care (01) ==
LOC: END 07:34
PROVIDERS: ATTEND Specialist
PROC: 0DJD8ZZ Inspection of Lower Intestinal Tract, Via Natural or Artificial Opening Endoscopic (ICD-10-PCS; principal; 2017-10-30 08:00)
DX: Z12.11 Encounter for screening for malignant neoplasm of colon (principal); Z86.010 Personal history of colon polyps; K64.4 Residual hemorrhoidal skin tags; K57.30 Diverticulosis of large intestine without perforation or abscess without bleeding; R97.0 Elevated carcinoembryonic antigen [CEA]; K21.9 Gastro-esophageal reflux disease without esophagitis; Z79.02 Long term (current) use of antithrombotics/antiplatelets; Z79.82 Long term (current) use of aspirin; Z88.1 Allergy status to other antibiotic agents
CPT/HCPCS: 36415; 82378; 85025; G0121; J2250; J3010; J1610; J2405; 45378; J0171; J2310; J3490

== ENCOUNTER 2018-02-03 15:02 | Emergency (ER) | payer MEDICARE, OTHER ==
--- NOTE | 2018-02-03 15:42 | ER Document Report ---
ED Medical Screen (RME) - General Chief Complaint: Arrhythmia Stated Complaint: IRREGULAR HEARTBEAT Time Seen by Provider: 02/03/18 15:40 Mode of Arrival: Ambulatory Information source: Patient Notes: This is a 77-year-old female that presents to the emergency room with sudden onset of palpitations at 1:45 PM. 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 Patient states she knows when the symptoms started (as above). Patient last ate 15 minutes before arrival ( crackers and tunafish). TRAVEL OUTSIDE OF THE [place] IN LAST 30 DAYS: No - Related Data Allergies/Adverse Reactions: amoxicillin [Amoxicillin] Allergy (Severe, Verified 10/30/17 07:18) Hives levofloxacin [From Levaquin] Allergy (Intermediate, Verified 10/30/17 07:18) kidney pain Past Medical History - Past Medical History Cardiac Medical History: Reports: Hx Coronary Artery Disease, Hx Heart Attack - 1997, Hx Hypertension Denies: Hx Congestive Heart Failure Pulmonary Medical History: Reports: Hx Pneumonia - 10 yrs ago Denies: Hx Asthma, Hx Bronchitis, Hx COPD, Hx Tuberculosis Neurological Medical History: Denies: Hx Cerebrovascular Accident, Hx Seizures Renal/ Medical History: Denies: Hx End Stage Renal Disease, Hx Kidney Stones, Hx Peritoneal Dialysis Malignancy Medical History: Reports: Hx Breast Cancer - Status post right mastectomy. The patient has been in remission for 15 yrs GI Medical History: Reports: Hx Gastroesophageal Reflux Disease, Hx Hiatal Hernia. Denies: Hx Cirrhosis, Hx Hepatitis, Hx Ulcer Musculoskeltal Medical History: Reports Hx Arthritis, Denies Hx Multiple Sclerosis Psychiatric Medical History: Denies: Hx Bipolar Disorder, Hx Depression, Hx Schizophrenia Infectious Medical History: Denies: Hx Hepatitis Past Surgical History: Reports: Hx Hysterectomy, Hx Mastectomy - restricted right side. Denies: Hx Open Heart Surgery, Hx Pacemaker - Immunizations Hx Diphtheria, Pertussis, Tetanus Vaccination: No - unsure Influenza Administration Date for 08/2017 - 01/2018 Season: 09/10/17 Physical Exam - Vital signs Vitals: Temp Pulse Resp BP Pulse Ox 98.3 F 166 H 18 124/96 H 96 02/03/18 15:31 02/03/18 15:31 02/03/18 15:31 02/03/18 15:31 02/03/18 15:31 Course - Vital Signs Vital signs: Temp Pulse Resp BP Pulse Ox 98.3 F 166 H 18 124/96 H 96 02/03/18 15:31 02/03/18 15:31 02/03/18 15:31 02/03/18 15:31 02/03/18 15:31 Doctor's Discharge - Discharge Referrals: MARISOL HENDERSON MD [Primary Care Provider] - Follow up as needed
[2018-02-03 16:05] LABS: ABSOLUTE BASOPHILS # (AUTO) 0.1 10^3/uL (0.0-0.2); ABSOLUTE EOSINOPHILS # (AUTO) 0.1 10^3/uL (0.0-0.6); ABSOLUTE LYMPHOCYTES (AUTO) 1.6 10^3/uL (0.5-4.7); ABSOLUTE MONOCYTES (AUTO) 1.3 10^3/uL (0.1-1.4); ABSOLUTE NEUT (AUTO) 4.7 10^3/uL (1.7-8.2); EOSINOPHILS % (AUTO) 1.6 % (0-6); HEMATOCRIT 44.4 % (36.0-47.0); HEMOGLOBIN 15.1 g/dL (12.0-15.5); LYMPHOCYTES % (AUTO) 20.6 % (13-45); MEAN CORPUSCULAR HEMOGLOBIN 31.1 pg (27.0-33.4); MEAN CORPUSCULAR HGB CONC 34.1 g/dL (32.0-36.0); MEAN CORPUSCULAR VOLUME 91 fl (80-97); MONOCYTES % (AUTO) 16.7 % (3-13); PLATELET COUNT 284 10^3/uL (150-450); RED BLOOD COUNT 4.86 10^6/uL (3.72-5.28); RED CELL DISTRIBUTION WIDTH 13.8 % (11.5-14.0); SEGMENTED NEUTROPHILS % (AUTO) 60.1 % (42-78); TOTAL CELLS COUNTED % (AUTO) 100 %; WHITE BLOOD COUNT 7.8 10^3/uL (4.0-10.5)
--- NOTE | 2018-02-03 16:19 | RADIOLOGY REPORT (SQ) ---
EXAM DESCRIPTION: CHEST SINGLE VIEW COMPLETED DATE/TIME: 02/03/2018 4:07 pm REASON FOR STUDY: palpitations COMPARISON: 05/07/2017 EXAM PARAMETERS: NUMBER OF VIEWS: One view. TECHNIQUE: Single frontal radiographic view of the chest acquired. RADIATION DOSE: NA LIMITATIONS: None. FINDINGS: LUNGS AND PLEURA: No opacities, masses or pneumothorax. No pleural effusion. MEDIASTINUM AND HILAR STRUCTURES: No masses. Contour normal. HEART AND VASCULAR STRUCTURES: Heart normal in size. Normal vasculature. BONES: No acute findings. HARDWARE: None in the chest. OTHER: No other significant finding. IMPRESSION: NO ACUTE RADIOGRAPHIC FINDING IN THE CHEST. TECHNICAL DOCUMENTATION: JOB ID: [id number] [employer]- All Rights Reserved Reading location - IP/workstation name: [email or web address]
[2018-02-03 16:24] LABS: ALANINE AMINOTRANSFERASE 31 U/L (9-52); ALBUMIN 5.1 g/dL (3.5-5.0); ALKALINE PHOSPHATASE 70 U/L (38-126); ANION GAP 14 (5-19); ASPARTATE AMINO TRANSFERASE 32 U/L (14-36); BILIRUBIN,DIRECT 0.2 mg/dL (0.0-0.4); BILIRUBIN,TOTAL 0.4 mg/dL (0.2-1.3); BLOOD UREA NITROGEN 9 mg/dL (7-20); CALCIUM 10.6 mg/dL (8.4-10.2); CARBON DIOXIDE 28 mmol/L (22-30); CHLORIDE 105 mmol/L (98-107); CREATINE KINASE 43 U/L (30-135); GLUCOSE 105 mg/dL (75-110); POTASSIUM 3.5 mmol/L (3.6-5.0); SODIUM 147.1 mmol/L (137-145); TOTAL PROTEIN 7.5 g/dL (6.3-8.2)
[2018-02-03] MEDS ORDERED: METOPROLOL SUCCINATE 50 MG TAB.SR.24H PO ONE (16:28)
[2018-02-03 16:35] LABS: CREATINE KINASE MB 0.63 ng/mL (<4.55)
--- NOTE | 2018-02-03 16:35 | ER Document Report ---
ED Cardiac - General Chief Complaint: Arrhythmia Stated Complaint: IRREGULAR HEARTBEAT Time Seen by Provider: 02/03/18 15:40 Mode of Arrival: Ambulatory Notes: Patient presents with atrial fibrillation at 137 beats per minute. She said that she went to [employer] today and got home about 130. She ate some crackers and tunafish and after about 15 minutes, she started noticing her heart was "fluttering". Patient does not have a history of atrial fibrillation. She had a routine six-month follow-up appointment with her local blueberry grower at [facility] on . She needed a refill for her metoprolol 50 mg XL , but has not filled that prescription yet. She ran out of her metoprolol that she was taking after her night dose, so she has not had metoprolol since night. She has not had any chest pain. Says she always has some shortness of breath. Nothing unusual about her breathing now. No vomiting and no diarrhea. No recent illness or fevers. PMH: GERD, hypertension, multiple cardiac caths by many years ago. TRAVEL OUTSIDE OF THE [place] IN LAST 30 DAYS: No - Related Data Allergies/Adverse Reactions: amoxicillin [Amoxicillin] Allergy (Severe, Verified 02/03/18 16:04) Hives levofloxacin [From Levaquin] Allergy (Intermediate, Verified 02/03/18 16:04) kidney pain Past Medical History - General Information source: Patient - Social History Smoking Status: Unknown if Ever Smoked Chew tobacco use (# tins/day): No Frequency of alcohol use: None Drug Abuse: None Family History: Reviewed & Not Pertinent, CAD Patient has suicidal ideation: No Patient has homicidal ideation: No - Past Medical History Cardiac Medical History: Reports: Hx Coronary Artery Disease, Hx Heart Attack - 1997, Hx Hypertension Denies: Hx Atrial Fibrillation, Hx Congestive Heart Failure Pulmonary Medical History: Reports: Hx Pneumonia - 10 yrs ago Denies: Hx Asthma, Hx Bronchitis, Hx COPD, Hx Tuberculosis Neurological Medical History: Denies: Hx Cerebrovascular Accident, Hx Seizures Renal/ Medical History: Denies: Hx End Stage Renal Disease, Hx Kidney Stones, Hx Peritoneal Dialysis Malignancy Medical History: Reports: Hx Breast Cancer - Status post right mastectomy. The patient has been in remission for 15 yrs GI Medical History: Reports: Hx Gastroesophageal Reflux Disease, Hx Hiatal Hernia. Denies: Hx Cirrhosis, Hx Hepatitis, Hx Ulcer Musculoskeltal Medical History: Reports Hx Arthritis, Denies Hx Multiple Sclerosis Psychiatric Medical History: Denies: Hx Bipolar Disorder, Hx Depression, Hx Schizophrenia Infectious Medical History: Denies: Hx Hepatitis Past Surgical History: Reports: Hx Appendectomy, Hx Cholecystectomy, Hx Hysterectomy, Hx Mastectomy - restricted right side. Denies: Hx Open Heart Surgery, Hx Pacemaker - Immunizations Hx Diphtheria, Pertussis, Tetanus Vaccination: No - unsure Hx Pneumococcal Vaccination: 08/26/13 Review of Systems - Review of Systems Notes: REVIEW OF SYSTEMS: CONSTITUTIONAL : Denies fever. EENT: Denies eye, ear, nose or mouth or throat pain or other symptoms. CARDIOVASCULAR: Denies chest pain. See HPI. RESPIRATORY: Denies cough, chest congestion, has some shortness of breath. GASTROINTESTINAL: Denies abdominal pain or nausea, vomiting, or diarrhea. GENITOURINARY: Denies difficulty or painful urinating, urinary frequency, blood in urine. MUSCULOSKELETAL: Denies back or neck pain. Denies joint pain or swelling. SKIN: Denies rash or skin lesions. NEUROLOGICAL: Denies LOC or altered mental status. Denies headache. Denies sensory loss or motor deficits. ALL OTHER SYSTEMS REVIEWED AND NEGATIVE. Physical Exam - Vital signs Vitals: Temp Pulse Resp BP Pulse Ox 98.3 F 166 H 18 124/96 H 96 02/03/18 15:31 02/03/18 15:31 02/03/18 15:31 02/03/18 15:31 02/03/18 15:31 Interpretation: Tachycardic - Irregular - Notes Notes: PHYSICAL EXAMINATION: GENERAL: Well-appearing, in no acute distress. Patient monitor now shows normal sinus rhythm. HEAD: Atraumatic, normocephalic. EYES: Pupils equal round and reactive to light, extraocular movements intact. ENT: oropharynx clear without exudates. Moist mucous membranes. NECK: Normal range of motion, supple. LUNGS: Breath sounds clear and equal bilaterally. HEART: Regular rate and rhythm without murmurs. Heart rate about 100. Regular. Sinus by monitor. ABDOMEN: Soft, nontender. No guarding or rebound. No masses. BACK: No tenderness throughout entire back. EXTREMITIES: Normal range of motion without pain. NEUROLOGICAL: Normal speech, normal gait. Normal sensory, motor, and reflex exams. Awake, alert, and oriented x3. Cranial nerves normal. PSYCH: Normal mood, normal affect. SKIN: Warm, dry, no rashes. Course - Re-evaluation Re-evalutation: 02/03/18 20:07 Patient remained symptom-free throughout the next couple of hours as I observe the monitor for any recurrence of arrhythmia. Her symptoms being gone and she feels normal and she no longer shows any evidence of an arrhythmia, I feel that it is safe to let her go home. - Vital Signs Vital signs: Temp Pulse Resp BP Pulse Ox 98.0 F 166 H 16 122/89 H 95 02/03/18 18:35 02/03/18 15:31 02/03/18 18:35 02/03/18 18:37 02/03/18 18:35 - Laboratory Result Diagrams: 02/03/18 15:52 02/03/18 15:52 Laboratory results interpreted by vt: 02/03/18 02/03/18 15:52 15:52 Monocytes % 16.7 H Sodium 147.1 H Potassium 3.5 L Calcium 10.6 H Albumin 5.1 H - Diagnostic Test Radiology results interpreted by me: 02/03/18 20:06 Chest x-ray normal. - EKG Interpretation by Md EKG shows normal: abnormal: Sinus rhythm Rate: Tachycardia Rhythm: A.Fib Additional EKG results interpreted by vt: 02/03/18 20:06 Second EKG is normal. No evidence of any acute changes. Sinus rhythm. Discharge - Discharge Clinical Impression: Atrial fibrillation with RVR, Normal sinus rhythm Condition: Stable Disposition: HOME, SELF-CARE Additional Instructions: Atrial Fibrillation Atrial fibrillation is an abnormal heart rhythm, caused by irregular electrical circuits in the upper heart chamber. It can be caused by heart valve disease, hardening of the arteries, or metabolic problems such as thyroid disease, or may occur without a clear cause. Atrial fibrillation may occur only occasionally, or may be chronic. Atrial fibrillation often results in a very fast heart rate, with palpitations, lightheadedness, and shortness of breath. Treatment is to slow the abnormally fast rate, and to convert the rhythm back to normal, if possible. Many patients stay in atrial fibrillation for years without symptoms or complications. Your doctor will decide whether you can be converted back to a normal heart rhythm. Contact the doctor or emergency medical system at once if you develop chest pain, shortness of breath, or severe lightheadedness, or if you develop any disturbance of consciousness, problems with speech, or localized weakness. Your rapid, irregular rhythm, known as atrial fibrillation, resolved on its own just after you arrived and you are examining room. You have been in a normal rhythm ever since then. Beta Blockers such as metoprolol You have been given a prescription for a beta-geoff medication. This class of drugs is used for many purposes, including angina, high blood pressure , heart rhythm disturbances, tremors, and migraines. The medication works by interfering with the effects of the sympathetic nervous system (the sympathetic system has adrenaline-like effects of constricting blood vessels, increasing heart rate, and increasing blood pressure). This medication is usually well-tolerated. However, some patients have side effects such as fatigue, depression, or dizziness. Persons with asthma may develop wheezing from this medicine. Contact your doctor if you are bothered by any side effects. Do not take any cold or allergy medication without first consulting your doctor. Do not stop the medicine without consulting your doctor, as a "rebound " worsening of your condition can result. Resume taking your metoprolol 50 mg a day, tomorrow evening. Call and follow-up with your blueberry grower to let them know about your visit to the emergency department and what we found. Return if you have recurrent symptoms. FOLLOW-UP CARE: If you have been referred to a physician for follow-up care, call the physician s office for an appointment as you were instructed or within the next two days. If you experience worsening or a significant change in your symptoms, notify the physician immediately or return to the Emergency Department at any time for re-evaluation. Referrals: MARISOL HENDERSON MD [Primary Care Provider] - Follow up as needed
[2018-02-03 16:41] LABS: FREE T3 3.92 pg/mL (2.77-5.27); FREE T4 (FREE THYROXINE) 1.42 ng/dL (0.78-2.19)
[2018-02-03 16:43] LABS: TROPONIN I < 0.012 ng/mL
[2018-02-03 16:55] LABS: THYROID STIMULATING HORMONE 1.73 uIU/mL (0.47-4.68)
[2018-02-03 18:47] VITALS: BP 122/89
--- NOTE | 2018-02-03 21:59 | EKG REPORT ---
SEVERITY:- NORMAL ECG - SINUS RHYTHM : Confirmed by: Jackie Perez 03-Feb-2018 21:59:24
--- NOTE | 2018-02-03 22:01 | EKG REPORT ---
SEVERITY:- ABNORMAL ECG - ATRIAL FIBRILLATION, V-RATE 102-169 BORDERLINE INFERIOR Q WAVES REPOLARIZATION ABNORMALITY, PROB RATE RELATED LVH : Confirmed by: Jackie Perez 03-Feb-2018 22:00:34
== END 2018-02-03 18:47 | disposition home or self-care (01) ==
LOC: ER 15:02
DX: I48.91 Unspecified atrial fibrillation (principal); I25.10 Atherosclerotic heart disease of native coronary artery without angina pectoris; I25.2 Old myocardial infarction; I10 Essential (primary) hypertension; Z90.49 Acquired absence of other specified parts of digestive tract; Z90.710 Acquired absence of both cervix and uterus; Z88.0 Allergy status to penicillin
CPT/HCPCS: 93005; 99285; 36415; 84439; 82553; 82550; 84443; 85025; 80053; 84484; 84481; 71045; 93010; A9270

== ENCOUNTER 2019-01-03 20:08 | Inpatient (IN) | payer MEDICARE, OTHER ==
[2019-01-03] MEDS ORDERED: NORMAL SALINE 500 ML IV ONE (20:40)
--- NOTE | 2019-01-03 20:42 | ER Document Report ---
ED Medical Screen (RME) - General Chief Complaint: Rectal Bleeding Stated Complaint: RECTAL BLEED Time Seen by Provider: 01/03/19 20:37 Primary Care Provider: MARISOL HENDERSON MD [Primary Care Provider] - Follow up as needed Notes: 78-year-old female chief complaint of 2 large bloody bright red bowel movements just prior to arrival. She states she feels weak and dizzy. She did not pass out. She denies abdominal pain. She is on Plavix. She had a colonoscopy 1 week ago and she believes she had polyps removed but no comments otherwise. Seen by Dr. Gillespie. TRAVEL OUTSIDE OF THE [place] IN LAST 30 DAYS: No - Related Data Allergies/Adverse Reactions: amoxicillin [Amoxicillin] Allergy (Severe, Verified 02/03/18 16:04) Hives levofloxacin [From Levaquin] Allergy (Intermediate, Verified 02/03/18 16:04) kidney pain Past Medical History - Past Medical History Cardiac Medical History: Reports: Hx Coronary Artery Disease, Hx Heart Attack - 1997, Hx Hypertension Denies: Hx Atrial Fibrillation, Hx Congestive Heart Failure Pulmonary Medical History: Reports: Hx Pneumonia - 10 yrs ago Denies: Hx Asthma, Hx Bronchitis, Hx COPD, Hx Tuberculosis Neurological Medical History: Denies: Hx Cerebrovascular Accident, Hx Seizures Renal/ Medical History: Denies: Hx End Stage Renal Disease, Hx Kidney Stones, Hx Peritoneal Dialysis Malignancy Medical History: Reports: Hx Breast Cancer - Status post right mastectomy. The patient has been in remission for 15 yrs GI Medical History: Reports: Hx Gastroesophageal Reflux Disease, Hx Hiatal Hernia. Denies: Hx Cirrhosis, Hx Hepatitis, Hx Ulcer Musculoskeltal Medical History: Reports Hx Arthritis, Denies Hx Multiple Sclerosis Psychiatric Medical History: Denies: Hx Bipolar Disorder, Hx Depression, Hx Schizophrenia Infectious Medical History: Denies: Hx Hepatitis Past Surgical History: Reports: Hx Appendectomy, Hx Cholecystectomy, Hx Hysterectomy, Hx Mastectomy - restricted right side. Denies: Hx Open Heart Surgery, Hx Pacemaker - Immunizations Hx Diphtheria, Pertussis, Tetanus Vaccination: No - unsure Influenza Administration Date for 08/2017 - 01/2018 Season: 09/10/17 Physical Exam - Vital signs Vitals: Temp Pulse Resp BP Pulse Ox 98.8 F 62 15 100/73 98 01/03/19 20:20 01/03/19 20:20 01/03/19 20:20 01/03/19 20:20 01/03/19 20:20 - Abdominal Inspection: Normal Tenderness: Nontender Course - Re-evaluation Re-evalutation: Patient pale, ill-appearing, borderline blood pressure. Calling immediately to have patient placed back in a room. - Vital Signs Vital signs: Temp Pulse Resp BP Pulse Ox 98.8 F 62 15 100/73 98 01/03/19 20:20 01/03/19 20:20 01/03/19 20:20 01/03/19 20:20 01/03/19 20:20 Doctor's Discharge - Discharge Referrals: MARISOL HENDERSON MD [Primary Care Provider] - Follow up as needed
[2019-01-03 21:06] LABS: ABSOLUTE BASOPHILS # (AUTO) 0.1 10^3/uL (0.0-0.2); ABSOLUTE EOSINOPHILS # (AUTO) 0.2 10^3/uL (0.0-0.6); ABSOLUTE LYMPHOCYTES (AUTO) 3.1 10^3/uL (0.5-4.7); ABSOLUTE MONOCYTES (AUTO) 0.8 10^3/uL (0.1-1.4); ABSOLUTE NEUT (AUTO) 5.1 10^3/uL (1.7-8.2); BASOPHILS % (AUTO) 1.2 % (0-2); EOSINOPHILS % (AUTO) 2.3 % (0-6); HEMATOCRIT 33.6 % (36.0-47.0); HEMOGLOBIN 11.7 g/dL (12.0-15.5); MEAN CORPUSCULAR HGB CONC 34.8 g/dL (32.0-36.0); MEAN CORPUSCULAR VOLUME 92 fl (80-97); MONOCYTES % (AUTO) 8.7 % (3-13); PLATELET COUNT 339 10^3/uL (150-450); RED BLOOD COUNT 3.66 10^6/uL (3.72-5.28); RED CELL DISTRIBUTION WIDTH 13.9 % (11.5-14.0); SEGMENTED NEUTROPHILS % (AUTO) 54.8 % (42-78); TOTAL CELLS COUNTED % (AUTO) 100 %; WHITE BLOOD COUNT 9.4 10^3/uL (4.0-10.5)
[2019-01-03 21:19] LABS: INTERNATIONAL RATION (INR) 0.95; PROTHROMBIN TIME 13.1 SEC (11.4-15.4)
[2019-01-03 21:20] LABS: PARTIAL THROMBOPLASTIN TIME 26.4 SEC (23.5-35.8)
[2019-01-03 21:29] LABS: ALANINE AMINOTRANSFERASE 23 U/L (9-52); ALBUMIN 3.9 g/dL (3.5-5.0); ALKALINE PHOSPHATASE 56 U/L (38-126); ANION GAP 9 (5-19); ASPARTATE AMINO TRANSFERASE 22 U/L (14-36); BILIRUBIN,DIRECT 0.1 mg/dL (0.0-0.4); BILIRUBIN,TOTAL 0.3 mg/dL (0.2-1.3); BLOOD UREA NITROGEN 20 mg/dL (7-20); CALCIUM 9.4 mg/dL (8.4-10.2); CARBON DIOXIDE 25 mmol/L (22-30); CHLORIDE 106 mmol/L (98-107); GLUCOSE 142 mg/dL (75-110); POTASSIUM 3.5 mmol/L (3.6-5.0); SODIUM 139.5 mmol/L (137-145); TOTAL PROTEIN 5.7 g/dL (6.3-8.2)
[2019-01-03 23:32] LABS: HEMOGLOBIN 10.3 g/dL (12.0-15.5); MEAN CORPUSCULAR HGB CONC 34.4 g/dL (32.0-36.0); MEAN CORPUSCULAR VOLUME 93 fl (80-97); PLATELET COUNT 230 10^3/uL (150-450); RED BLOOD COUNT 3.22 10^6/uL (3.72-5.28); RED CELL DISTRIBUTION WIDTH 13.5 % (11.5-14.0); WHITE BLOOD COUNT 18.8 10^3/uL (4.0-10.5)
--- NOTE | 2019-01-03 23:33 | ER Document Report ---
ED General - General Chief Complaint: Rectal Bleeding Stated Complaint: RECTAL BLEED Time Seen by Provider: 01/03/19 20:37 Notes: Patient is a 78-year-old female with past medical history of coronary artery disease, hypertension, hyperlipidemia, currently on clopidogrel and aspirin although has no history of stent placement, prior TIA or prior stroke who presents complaining of 2 large bloody bowel movements that occurred prior to arrival. Patient states that she had a partial colonic polyp resection 1 week ago during a colonoscopy with her GI physician Dr. Gillespie. States that she had not had a satisfactory bowel movement since that time despite taking MiraLAX. Tonight when she went to the bathroom she filled the toilet with bright red blood on 2 separate occasions prompting her to come to the emergency department. She has no history of similar symptoms in the past. States she felt somewhat lightheaded after these episodes of bright red blood per rectum which have since resolved after receiving IV fluids. She denies any focal abdominal pain. No chest pain or shortness of breath. Nothing has been noted to improve or worsen her symptoms since onset. TRAVEL OUTSIDE OF THE [place] IN LAST 30 DAYS: No - Related Data Allergies/Adverse Reactions: amoxicillin [Amoxicillin] Allergy (Severe, Verified 02/03/18 16:04) Hives levofloxacin [From Levaquin] Allergy (Intermediate, Verified 02/03/18 16:04) kidney pain Past Medical History - General Information source: Patient - Social History Smoking Status: Former Smoker Frequency of alcohol use: None Drug Abuse: None Lives with: Family Family History: Reviewed & Not Pertinent, CAD Patient has suicidal ideation: No Patient has homicidal ideation: No - Past Medical History Cardiac Medical History: Reports: Hx Coronary Artery Disease, Hx Heart Attack - 1997, Hx Hypertension Denies: Hx Atrial Fibrillation, Hx Congestive Heart Failure Pulmonary Medical History: Reports: Hx Pneumonia Denies: Hx Asthma, Hx Bronchitis, Hx COPD, Hx Tuberculosis Neurological Medical History: Denies: Hx Cerebrovascular Accident, Hx Seizures Renal/ Medical History: Denies: Hx End Stage Renal Disease, Hx Kidney Stones, Hx Peritoneal Dialysis Malignancy Medical History: Reports: Hx Breast Cancer - Status post right mastectomy. The patient has been in remission for 15 yrs GI Medical History: Reports: Hx Gastroesophageal Reflux Disease, Hx Hiatal Hernia. Denies: Hx Cirrhosis, Hx Hepatitis, Hx Ulcer Musculoskeletal Medical History: Reports Hx Arthritis, Denies Hx Multiple S clerosis Psychiatric Medical History: Denies: Hx Bipolar Disorder, Hx Depression, Hx Schizophrenia Infectious Medical History: Denies: Hx Hepatitis Past Surgical History: Reports: Hx Appendectomy, Hx Cholecystectomy, Hx Hys terectomy, Hx Mastectomy - restricted right side. Denies: Hx Open Heart Surgery, Hx Pacemaker - Immunizations Hx Diphtheria, Pertussis, Tetanus Vaccination: No - unsure Hx Pneumococcal Vaccination: 08/26/13 Review of Systems - Review of Systems Notes: Constitutional: Negative for fever. HENT: Negative for sore throat. Eyes: Negative for visual changes. Cardiovascular: Negative for chest pain. Positive for lightheadedness Respiratory: Negative for shortness of breath. Gastrointestinal: Positive for hematochezia Genitourinary: Negative for dysuria. Musculoskeletal: Negative for back pain. Skin: Negative for rash. Neurological: Negative for headaches, weakness or numbness. 10 point ROS negative except as marked above and in HPI. Physical Exam - Vital signs Vitals: Temp Pulse Resp BP Pulse Ox 98.8 F 62 15 100/73 98 01/03/19 20:20 01/03/19 20:20 01/03/19 20:20 01/03/19 20:20 01/03/19 20:20 Interpretation: Normal Notes: PHYSICAL EXAMINATION: GENERAL: Well-appearing, well-nourished and in no acute distress. HEAD: Atraumatic, normocephalic. EYES: Pupils equal round and reactive to light, extraocular movements intact, sclera anicteric, conjunctiva are normal. ENT: nares patent, oropharynx clear without exudates. Moderately dry mucous membranes. NECK: Normal range of motion, supple without lymphadenopathy LUNGS: Breath sounds clear to auscultation bilaterally and equal. No wheezes rales or rhonchi. HEART: Regular rate and rhythm without murmurs rectal: Maroon colored stool present. No masses or lesions ABDOMEN: Soft, nontender, normoactive bowel sounds. No guarding, no rebound. No masses appreciated. EXTREMITIES: Normal range of motion, no pitting or edema. No cyanosis. NEUROLOGICAL: No focal neurological deficits. Moves all extremities spontaneously and on command. PSYCH: Normal mood, normal affect. SKIN: Warm, Dry, normal turgor, no rashes or lesions noted. Course - Re-evaluation Re-evalutation: 02/08/19 23:31 Patient presents with multiple bright red blood per rectum bowel movements with associated lightheadedness. Patient had mild hypotension at time of presentation, resolved after receiving 500 cc of fluid. Patient does take clopidogrel as well as aspirin although does not have a clear indication to continue to take the Plaquenil at this point. Has no history of drug-eluting stent, had angioplasty in 1997. Patient is otherwise well in appearance. No abdominal tenderness on exam. Rectal examination with stool mixed with bright red blood. Maroon color. Heme positive. Hemoglobin mildly low at 11.7. Did discuss with the surgeon on-call Dr. Tejeda who agrees the patient is acceptable to remain here at this hospital. Discussed with the hospitalist who has accepted the patient for admission. - Vital Signs Vital signs: Temp Pulse Resp BP Pulse Ox 97.8 F 62 14 100/53 L 95 01/04/19 02:08 01/03/19 20:20 01/04/19 02:08 01/04/19 02:08 01/04/19 02:08 - Laboratory Result Diagrams: 01/03/19 23:25 01/03/19 20:52 Laboratory results interpreted by me: 01/03/19 01/03/19 01/03/19 20:52 20:52 23:25 WBC 18.8 H RBC 3.66 L 3.22 L Hgb 11.7 L 10.3 L Hct 33.6 L 30.0 L Potassium 3.5 L Glucose 142 H Total Protein 5.7 L Discharge - Discharge Clinical Impression: Lower GI bleed, Lightheadedness Condition: Fair Disposition: ADMITTED INPATIENT Admitting Provider: Hospitalist Unit Admitted: Medical Floor
[2019-01-03] MEDS ORDERED: MAG HYDROX/AL HYDROX/SIMETH SUSP 30 ML UDCUP PO PRN (23:40)
[2019-01-03] MEDS ORDERED: ONDANSETRON 4 MG TAB.RAPDIS PO PRN (23:40)
[2019-01-03] MEDS ORDERED: MAGNESIUM HYDROXIDE SUSP 30 ML UDCUP PO PRN (23:40)
[2019-01-03] MEDS ORDERED: ONDANSETRON HCL INJ/PF 4 MG/2 ML SDV IV PRN (23:40)
[2019-01-03] MEDS ORDERED: ACETAMINOPHEN 650 MG SUPP.RECT PR PRN (23:47)
[2019-01-03] MEDS ORDERED: HYDRALAZINE HCL INJ/PF 20 MG/1 ML SDV IV PRN (23:47)
[2019-01-03] MEDS ORDERED: NITROGLYCERIN 0.4 MG/TAB 25 TAB/BOTTLE SL PRN (23:47)
[2019-01-03] MEDS ORDERED: NALBUPHINE HCL INJ 10 MG/1 ML AMPULE IV PRN (23:47)
[2019-01-03] MEDS ORDERED: LABETALOL HCL INJ 20 MG/4 ML DISP.SYRIN IV PRN (23:47)
[2019-01-03] MEDS ORDERED: ACETAMINOPHEN 325 MG TABLET PO PRN (23:47)
[2019-01-04] MEDS ORDERED: SIMVASTATIN 10 MG TABLET PO ONE (00:45)
--- NOTE | 2019-01-04 01:10 | PDOC H&P ---
History of Present Illness Admission Date/PCP: MARISOL HENDERSON MD Patient complains of: Rectal bleeding History of Present Illness: MAYA CUBA is a 78 year old female who presented to the emergency room with an acute history of rectal bleeding (hematochezia). She admits that 1 week ago she had a partial colonic polypectomy via colonoscopy by Dr. Gillespie, and since that time had not had a bowel movement until today when she passed 2 large stools with bright red blood on and mixed with the stool. Immediately after passing the stools she felt moderately to severely weak and dizzy and thus presented herself to the emergency room. She denied abdominal pain, nausea and vomiting as well as prior similar episodes. She has not identified any aggravating or ameliorating factors for her rectal bleeding. In the emergency room she was found to have continued active rectal bleeding and a hemoglobin of 10.6. She was subsequently admitted to the hospital for further evaluation and treatment with Dr. Tejeda accepting responsibility for surgical consultation and assistance in surgical management as required. Past Medical History Cardiac Medical History: Reports: Coronary Artery Disease, Myocardial Infarction - 1997, Hypertension Denies: Atrial Fibrillation, Congestive Heart Failure Pulmonary Medical History: Reports: Pneumonia Denies: Asthma, Bronchitis, Chronic Obstructive Pulmonary Disease (COPD), Tuberculosis EENT Medical History: Denies: Cataracts, Nose - Epistaxis Neurological Medical History: Denies: Hemorrhagic CVA, Ischemic CVA, Multiple Sclerosis, Seizures Endocrine Medical History: Denies: Diabetes Mellitus Type 1, Diabetes Mellitus Type 2, Hyperthyroidism, Hypothyroidism Renal/ Medical History: Denies: Chronic Kidney Disease, Nephrolithiasis Malignancy Medical History: Reports: Breast Cancer - Status post right mastectomy. The patient has been in remission for 17 yrs GI Medical History: Reports: Diverticulitis, Gastroesophageal Reflux Disease, Hiatal Hernia, Other Denies: Cirrhosis, Crohn's Disease, Hepatitis, Peptic Ulcer Disease, Ulcerative Colitis Musculoskeltal Medical History: Reports: Arthritis Denies: Gout Skin Medical History: Denies: Eczema, Psoriasis Psychiatric Medical History: Reports: Tobacco Dependency Denies: Alcohol Dependency, Substance Abuse Traumatic Medical History: Reports: None, Other - Ankle fracture last year Hematology: Reports: Anemia Denies: Bleeding Tendencies Infectious Medical History: Reports: None Past Surgical History Past Surgical History: Reports: Appendectomy, Cardiac Catheterization - With percutaneous angioplasty, without stent placement, Cholecystectomy, Hysterectomy, Mastectomy - restricted right side Social History Information Source: Patient Lives with: Spouse/Significant other Smoking Status: Former Smoker Frequency of Alcohol Use: None Hx Recreational Drug Use: No Drugs: None Hx Prescription Drug Abuse: No - Advance Directive Resuscitation Status: Full Code Surrogate healthcare decision maker:: spouse Family History Family History: CAD, Hypertension, Malignancy Parental Family History Reviewed: Yes Children Family History Reviewed: No Sibling(s) Family History Reviewed.: Yes Medication/Allergy Home Medications: Ascorbic Acid [Vitamin C] 1,000 mg PO DAILY 05/07/17 Aspirin [Aspirin 81 mg Chewable Tablet] 81 mg PO DAILY 05/07/17 Clopidogrel Bisulfate [Plavix 75 mg Tablet] 75 mg PO DAILY 05/07/17 Cyanocobalamin (Vitamin B-12) [Vitamin B-12 1000 mcg Tablet] 1,000 mcg PO DAILY 05/07/17 Diltiazem HCl [Tiazac] 120 mg PO DAILY 05/07/17 Fish Oil/Dha/Epa [Fish Oil 1,200 mg Fish Oil] 1,200 mg PO DAILY 05/07/17 Folic Acid 0.4 mg PO QHS 05/07/17 Metoprolol Succinate [Toprol Xl 50 mg Tab.sr] 50 mg PO QHS 05/07/17 Pyridoxine HCl [Vitamin B-6] 100 mg PO DAILY 05/07/17 Simvastatin [Zocor 10 mg Tablet] 10 mg PO Q2D@2200 05/07/17 Ubidecarenone [Co Q-10] 100 mg PO DAILY 05/07/17 Vitamin E 400 unit PO DAILY 05/07/17 Pantoprazole Sodium [Protonix] 40 mg PO BID #60 tablet. 05/08/17 Allergies/Adverse Reactions: amoxicillin [Amoxicillin] Allergy (Severe, Verified 02/03/18 16:04) Hives levofloxacin [From Levaquin] Allergy (Intermediate, Verified 02/03/18 16:04) kidney pain Review of Systems Constitutional: PRESENT: as per HPI, weakness - Acutely with dizziness as per HPI. ABSENT: chills, fever(s) Eyes: ABSENT: visual disturbances, other - Ocular pain Ears: ABSENT: hearing changes, other - Ear pain Nose, Mouth, and Throat: ABSENT: mouth pain, sore throat Cardiovascular: ABSENT: chest pain, dyspnea on exertion, edema, orthropnea, palpitations Respiratory: ABSENT: cough, dyspnea Gastrointestinal: PRESENT: hematochezia. ABSENT: abdominal pain, diarrhea, melena, nausea, vomiting Genitourinary: ABSENT: dysuria, hematuria Musculoskeletal: ABSENT: back pain, joint swelling Integumentary: ABSENT: pruritus, rash Neurological: PRESENT: as per HPI, dizziness, weakness. ABSENT: confusion, convulsions, memory loss Psychiatric: ABSENT: anxiety, depression Endocrine: ABSENT: cold intolerance, heat intolerance Hematologic/Lymphatic: ABSENT: easy bleeding, easy bruising Physical Exam Vital Signs: Temp Pulse Resp BP Pulse Ox 97.7 F 62 15 93/53 L 98 01/03/19 21:42 01/03/19 20:20 01/03/19 21:42 01/03/19 21:42 01/03/19 21:42 Intake & Output 01/01/19 01/02/19 01/03/19 23:59 23:59 23:59 Weight 57.6 kg General appearance: PRESENT: no acute distress, cooperative Head exam: PRESENT: atraumatic, normocephalic Eye exam: PRESENT: conjunctiva pink, EOMI. ABSENT: scleral icterus Ear exam: PRESENT: normal external ear exam. ABSENT: bleeding, drainage Mouth exam: PRESENT: dry mucosa, neck supple Neck exam: ABSENT: JVD, thyromegaly, tracheal deviation Respiratory exam: PRESENT: clear to auscultation kylee, symmetrical, unlabored Cardiovascular exam: PRESENT: RRR. ABSENT: clicks, gallop, rubs Pulses: PRESENT: normal radial pulses, normal dorsalis pedis pul Vascular exam: PRESENT: normal capillary refill. ABSENT: pallor GI/Abdominal exam: PRESENT: normal bowel sounds, soft Rectal exam: PRESENT: deferred Extremities exam: ABSENT: joint swelling, pedal edema Musculoskeletal exam: PRESENT: full ROM, normal inspection. ABSENT: deformity, dislocation Neurological exam: PRESENT: alert, oriented to person, oriented to place, diaz ented to time, oriented to situation, CN II-XII grossly intact. ABSENT: motor sensory deficit Psychiatric exam: PRESENT: appropriate affect, normal mood Skin exam: PRESENT: dry, intact, warm. ABSENT: jaundice, rash, urticaria Results Laboratory Results: 01/03/19 20:52 01/03/19 01/03/19 01/03/19 20:52 20:52 20:52 WBC 9.4 RBC 3.66 L Hgb 11.7 L Hct 33.6 L MCV 92 MCH 32.0 MCHC 34.8 RDW 13.9 Plt Count 339 Seg Neutrophils % 54.8 Lymphocytes % 33.0 Monocytes % 8.7 Eosinophils % 2.3 Basophils % 1.2 Absolute Neutrophils 5.1 Absolute Lymphocytes 3.1 Absolute Monocytes 0.8 Absolute Eosinophils 0.2 Absolute Basophils 0.1 Sodium 139.5 Potassium 3.5 L Chloride 106 Carbon Dioxide 25 Anion Gap 9 BUN 20 Creatinine 0.85 Est GFR ( Amer) > 60 Est GFR (Non-Af Amer) > 60 Glucose 142 H Calcium 9.4 Total Bilirubin 0.3 AST 22 ALT 23 Alkaline Phosphatase 56 Total Protein 5.7 L Albumin 3.9 Blood Type O POSITIVE Antibody Screen NEGATIVE Assessment & Plan - Diagnosis (1) Lower GI bleed Is this a current diagnosis for this admission?: Yes Plan: This would appear to be a post polypectomy complication but the exact site of bleeding will have been on until a visual inspection can be conducted via colonoscopy. Dr. Tejeda has been consulted and will be assisting in her surgical management and arranging for a colonoscopy. Serial hemoglobins will be followed on a every 6 hours basis and transfusion will be provided if required. Patient be maintained on IV fluid support while she is n.p.o. prior to surgical evaluation. Other supportive and symptomatic cares for her GI bleed will be provided as needed. (2) CAD (coronary artery disease), [place] coronary artery Qualifiers: [place] vs. transplanted heart: [place] heart Associated angina: without angina Qualified Code(s): I25.10 - Atherosclerotic heart disease of [place] coronary artery without angina pectoris Is this a current diagnosis for this admission?: Yes Plan: Patient will be continued on her current cardiac medications with the exception of the discontinuation of Plavix and the temporary hold on aspirin. (3) HLD (hyperlipidemia) Qualifiers: Hyperlipidemia type: unspecified Qualified Code(s): E78.5 - Hyperlipidemia, unspecified Is this a current diagnosis for this admission?: Yes Plan: Patient will be continued on her current statin agent and a lipid profile will be obtained to assess efficacy of therapy. (4) HTN (hypertension) Qualifiers: Hypertension type: essential hypertension Qualified Code(s): I10 - Essential (primary) hypertension Is this a current diagnosis for this admission?: Yes Plan: Patient will be continued on her current antihypertensive agents as appropriate. Medications will be held as appropriate if the patient is hypotensive or tachy cardic. (5) GERD (gastroesophageal reflux disease) Qualifiers: Esophagitis presence: esophagitis presence not specified Qualified Code(s): K21.9 - Gastro-esophageal reflux disease without esophagitis Is this a current diagnosis for this admission?: Yes Plan: Patient be continued on Protonix using it IV versus her usual oral administration. - Time Time Spent: 30 to 50 Minutes Critical Time spent with patient: Less than 15 minutes Medications reviewed and adjusted accordingly: Yes Anticipated discharge: Home - Inpatient Certification Based on my medical assessment, after consideration of the patient's comorbidities, presenting symptoms, or acuity I expect that the services needed warrant INPATIENT care.: Yes I certify that my determination is in accordance with my understanding of Medicare's requirements for reasonable and necessary INPATIENT services [42 CFR 412.3e].: Yes Medical Necessity: Significant Comorbidiites Make Outpatient Treatment Too Risky, Need Close Monitoring Due to Risk of Patient Decompensation, Need For IV Fluids, Need for Surgery, Risk of Complication if Not Cared For in Hospital
[2019-01-04] MEDS: POTASSI CL 20 MEQ/D5-1/2NS 1L 1,000 ML IV PRN ×2 (02:25→17:36)
[2019-01-04 04:54] LABS: HEMATOCRIT 29.2 % (36.0-47.0); HEMOGLOBIN 10.2 g/dL (12.0-15.5); MEAN CORPUSCULAR HEMOGLOBIN 31.9 pg (27.0-33.4); MEAN CORPUSCULAR HGB CONC 34.9 g/dL (32.0-36.0); MEAN CORPUSCULAR VOLUME 92 fl (80-97); PLATELET COUNT 235 10^3/uL (150-450); RED BLOOD COUNT 3.19 10^6/uL (3.72-5.28); RED CELL DISTRIBUTION WIDTH 13.8 % (11.5-14.0); WHITE BLOOD COUNT 12.9 10^3/uL (4.0-10.5)
[2019-01-04 05:13] LABS: ANION GAP 7 (5-19); BLOOD UREA NITROGEN 22 mg/dL (7-20); CALCIUM 9.2 mg/dL (8.4-10.2); CARBON DIOXIDE 25 mmol/L (22-30); CHLORIDE 109 mmol/L (98-107); CHOLESTEROL 96.52 mg/dL (0-200); GLUCOSE 120 mg/dL (75-110); POTASSIUM 4.4 mmol/L (3.6-5.0); SODIUM 140.8 mmol/L (137-145); TRIGLYCERIDES 63 mg/dL (<150)
[2019-01-04 05:23] LABS: DIRECT LDL 54 mg/dL (<100)
[2019-01-04 05:30] LABS: FREE T3 3.4 pg/mL (2.77-5.27); FREE T4 (FREE THYROXINE) 1.02 ng/dL (0.78-2.19)
[2019-01-04 05:43] LABS: THYROID STIMULATING HORMONE 1.08 uIU/mL (0.47-4.68)
[2019-01-04] MEDS ORDERED: (PENDING PHARMACY ID) (Fish Oil/Dha/Epa [Fish Oil 1,200 Mg Fish Oil] 1,200 MG) PO SCH (10:00)
[2019-01-04] MEDS ORDERED: (PENDING PHARMACY ID) (Ubidecarenone [Co Q-10] 100 MG) PO SCH (10:00)
[2019-01-04] MEDS: DILTIAZEM HCL 60 MG TABLET PO SCH (10:27)
[2019-01-04] MEDS: PANTOPRAZOLE SODIUM 40 MG VIAL IV SCH ×2 (10:27→21:48)
[2019-01-04] MEDS: FOLIC ACID 1 MG TABLET PO SCH (10:27)
[2019-01-04] MEDS: PYRIDOXINE HCL 50 MG TABLET PO SCH (10:27)
[2019-01-04] MEDS: ASCORBIC ACID 500 MG TABLET PO SCH (10:27)
[2019-01-04] MEDS: DOCUSATE SODIUM 100 MG CAPSULE PO SCH ×2 (10:28→17:46)
[2019-01-04 12:33] LABS: HEMOGLOBIN 9.5 g/dL (12.0-15.5); MEAN CORPUSCULAR HEMOGLOBIN 32.4 pg (27.0-33.4); MEAN CORPUSCULAR HGB CONC 35.1 g/dL (32.0-36.0); MEAN CORPUSCULAR VOLUME 92 fl (80-97); PLATELET COUNT 220 10^3/uL (150-450); RED BLOOD COUNT 2.92 10^6/uL (3.72-5.28); RED CELL DISTRIBUTION WIDTH 13.7 % (11.5-14.0); WHITE BLOOD COUNT 9.6 10^3/uL (4.0-10.5)
--- NOTE | 2019-01-04 15:37 | PDOC PROGRESS REPORT ---
Subjective Progress Note for:: 01/04/19 Subjective:: Admitted overnight for lower GI bleed. SInce admission has had 2 BM's both which had blood. States that she is otherwise feeling OK. Denies lightheadness, dizziness, fevers, chills, CP, SOB, abdominal pain, NV. Has been NPO and requesting to eat. Family including , son, sister at bedside. Reason For Visit: POST POLYPECTOMY RECTAL BLEEDING Physical Exam Vital Signs: Temp Pulse Resp BP Pulse Ox 98.3 F 89 16 111/51 L 97 01/04/19 12:37 01/04/19 12:37 01/04/19 12:37 01/04/19 12:37 01/04/19 12:37 Intake & Output 01/03/19 01/04/19 01/05/19 06:59 06:59 06:59 Intake Total 500 Balance 500 Weight 59.3 kg General appearance: PRESENT: no acute distress, cooperative, well-developed, well-nourished Mouth exam: PRESENT: dry mucosa Respiratory exam: PRESENT: unlabored. ABSENT: tachypnea, wheezes Cardiovascular exam: PRESENT: +S1, +S2. ABSENT: tachycardia GI/Abdominal exam: PRESENT: soft. ABSENT: distended, firm, tenderness Rectal exam: PRESENT: bloody stool - Per report Extremities exam: PRESENT: full ROM. ABSENT: +1 edema Neurological exam: PRESENT: alert, awake, CN II-XII grossly intact Psychiatric exam: PRESENT: appropriate affect, normal mood Skin exam: PRESENT: dry, intact Results Laboratory Results: 01/04/19 12:05 01/04/19 04:26 01/03/19 01/03/19 01/03/19 20:52 20:52 20:52 WBC 9.4 RBC 3.66 L Hgb 11.7 L Hct 33.6 L MCV 92 MCH 32.0 MCHC 34.8 RDW 13.9 Plt Count 339 Seg Neutrophils % 54.8 Lymphocytes % 33.0 Monocytes % 8.7 Eosinophils % 2.3 Basophils % 1.2 Absolute Neutrophils 5.1 Absolute Lymphocytes 3.1 Absolute Monocytes 0.8 Absolute Eosinophils 0.2 Absolute Basophils 0.1 Sodium 139.5 Potassium 3.5 L Chloride 106 Carbon Dioxide 25 Anion Gap 9 BUN 20 Creatinine 0.85 Est GFR ( Amer) > 60 Est GFR (Non-Af Amer) > 60 Glucose 142 H Calcium 9.4 Magnesium Total Bilirubin 0.3 AST 22 ALT 23 Alkaline Phosphatase 56 Total Protein 5.7 L Albumin 3.9 Triglycerides Cholesterol LDL Cholesterol Direct VLDL Cholesterol HDL Cholesterol TSH Free T4 Free T3 pg/mL Blood Type O POSITIVE Antibody Screen NEGATIVE 01/03/19 01/04/19 01/04/19 23:25 04:26 04:26 WBC 18.8 H 12.9 H RBC 3.22 L 3.19 L Hgb 10.3 L 10.2 L Hct 30.0 L 29.2 L MCV 93 92 MCH 32.0 31.9 MCHC 34.4 34.9 RDW 13.5 13.8 Plt Count 230 235 Seg Neutrophils % Lymphocytes % Monocytes % Eosinophils % Basophils % Absolute Neutrophils Absolute Lymphocytes Absolute Monocytes Absolute Eosinophils Absolute Basophils Sodium 140.8 Potassium 4.4 Chloride 109 H Carbon Dioxide 25 Anion Gap 7 BUN 22 H Creatinine 0.60 Est GFR ( Amer) > 60 Est GFR (Non-Af Amer) > 60 Glucose 120 H Calcium 9.2 Magnesium 2.1 Total Bilirubin AST ALT Alkaline Phosphatase Total Protein Albumin Triglycerides 63 Cholesterol 96.52 LDL Cholesterol Direct 54 VLDL Cholesterol 13.0 HDL Cholesterol 42 TSH Free T4 Free T3 pg/mL Blood Type Antibody Screen 01/04/19 01/04/19 04:26 12:05 WBC 9.6 RBC 2.92 L Hgb 9.5 L Hct 27.0 L MCV 92 MCH 32.4 MCHC 35.1 RDW 13.7 Plt Count 220 Seg Neutrophils % Lymphocytes % Monocytes % Eosinophils % Basophils % Absolute Neutrophils Absolute Lymphocytes Absolute Monocytes Absolute Eosinophils Absolute Basophils Sodium Potassium Chloride Carbon Dioxide Anion Gap BUN Creatinine Est GFR ( Amer) Est GFR (Non-Af Amer) Glucose Calcium Magnesium Total Bilirubin AST ALT Alkaline Phosphatase Total Protein Albumin Triglycerides Cholesterol LDL Cholesterol Direct VLDL Cholesterol HDL Cholesterol TSH 1.08 Free T4 1.02 Free T3 pg/mL 3.40 Blood Type Antibody Screen Assessment & Plan - Diagnosis (1) Lower GI bleed Is this a current diagnosis for this admission?: Yes Plan: Likely a post polypectomy complication which was done 2 weeks ago Plan - Continue Protonix 40mg IV BID for now - Surgery c/s and will help with arrangement of colonoscopy (by GI?) - H&H stable over last 3 checks; will increase frequency to q12 for now - Continue IV fluid support - OK to advance diet to full liquid, will make NPO on Sunday night at midnight (2) CAD (coronary artery disease), [place] coronary artery Qualifiers: [place] vs. transplanted heart: [place] heart Associated angina: without angina Qualified Code(s): I25.10 - Atherosclerotic heart disease of [place] coronary artery without angina pectoris Is this a current diagnosis for this admission?: Yes Plan: - Continued home regimen (3) HLD (hyperlipidemia) Qualifiers: Hyperlipidemia type: unspecified Qualified Code(s): E78.5 - Hyperlipidemia, unspecified Is this a current diagnosis for this admission?: Yes Plan: Continue home statin (4) Lightheadedness Is this a current diagnosis for this admission?: Yes Plan: Likely from anemia due to GI bleed - Improved today, CTM - Continue vital checks Q shift - Time Time Spent with patient: 15-24 minutes Within: within 72 hours
[2019-01-04] MEDS: VITAMIN E (DL, ACETATE) 400 UNIT CAPSULE PO SCH (17:37)
--- NOTE | 2019-01-04 18:50 | PDOC CONSULTATION ---
Consultation Consult Date: 01/04/19 Consult reason:: lower GI bleed History of Present Illness Admission Date/PCP: 01/03/19 23:37 MARISOL HENDERSON MD History of Present Illness: MAYA CUBA is a 78 year old female who had colonoscopy and partial polypectomy by Dr Gillespie last week. Had 2 Bloody BMs yesterday with weakness and dizzyness which prompted her to go to ED yesterday. Initial Hgb 10.6. Past Medical History Cardiac Medical History: Reports: Coronary Artery Disease, Myocardial Infarction - 1997, Hypertension Denies: Atrial Fibrillation, Congestive Heart Failure Pulmonary Medical History: Reports: Pneumonia Denies: Asthma, Bronchitis, Chronic Obstructive Pulmonary Disease (COPD), Tuberculosis EENT Medical History: Denies: Cataracts, Nose - Epistaxis Neurological Medical History: Denies: Hemorrhagic CVA, Ischemic CVA, Multiple Sclerosis, Seizures Endocrine Medical History: Denies: Diabetes Mellitus Type 1, Diabetes Mellitus Type 2, Hyperthyroidism, Hypothyroidism Renal/ Medical History: Denies: Chronic Kidney Disease, End Stage Renal Disease, Nephrolithiasis Malignancy Medical History: Reports: Breast Cancer - Status post right mastectomy. The patient has been in remission for 15 yrs GI Medical History: Reports: Diverticulitis, Gastroesophageal Reflux Disease, Hiatal Hernia, Other Denies: Cirrhosis, Crohn's Disease, Hepatitis, Peptic Ulcer Disease, Ulcerative Colitis Musculoskeltal Medical History: Reports: Arthritis Denies: Gout Skin Medical History: Denies: Eczema, Psoriasis Psychiatric Medical History: Reports: Tobacco Dependency Denies: Alcohol Dependency, Bipolar Disorder, Depression, Substance Abuse Traumatic Medical History: Reports: None, Other - Ankle fracture last year Hematology: Reports: Anemia Denies: Sickle Cell Disease, Bleeding Tendencies Infectious Medical History: Reports: None Past Surgical History Past Surgical History: Reports: Appendectomy, Cardiac Catheterization - With percutaneous angioplasty, without stent placement, Cholecystectomy, Hysterectomy, Mastectomy - restricted right side Denies: Amputation, Pacemaker Social History Lives with: Family Smoking Status: Former Smoker Frequency of Alcohol Use: None Hx Recreational Drug Use: No Drugs: None Hx Prescription Drug Abuse: No - Advance Directive Resuscitation Status: Full Code Family History Family History: Reviewed & Not Pertinent, CAD Parental Family History Reviewed: Yes Children Family History Reviewed: No Sibling(s) Family History Reviewed.: No Medication/Allergy Home Medications: Ascorbic Acid [Vitamin C] 1,000 mg PO DAILY 05/07/17 Aspirin [Aspirin 81 mg Chewable Tablet] 81 mg PO DAILY 05/07/17 Clopidogrel Bisulfate [Plavix 75 mg Tablet] 75 mg PO DAILY 05/07/17 Cyanocobalamin (Vitamin B-12) [Vitamin B-12 1000 mcg Tablet] 1,000 mcg PO DAILY 05/07/17 Diltiazem HCl [Tiazac] 120 mg PO DAILY 05/07/17 Fish Oil/Dha/Epa [Fish Oil 1,200 mg Fish Oil] 1,200 mg PO DAILY 05/07/17 Folic Acid 0.4 mg PO QHS 05/07/17 Metoprolol Succinate [Toprol Xl 50 mg Tab.sr] 50 mg PO QHS 05/07/17 Pyridoxine HCl [Vitamin B-6] 100 mg PO DAILY 05/07/17 Simvastatin [Zocor 10 mg Tablet] 10 mg PO Q2D@2200 05/07/17 Ubidecarenone [Co Q-10] 100 mg PO DAILY 05/07/17 Vitamin E 400 unit PO DAILY 05/07/17 Pantoprazole Sodium [Protonix] 40 mg PO BID #60 tablet.dr 05/08/17 Gabapentin [Neurontin 300 mg Capsule] 300 mg PO Q12 01/04/19 Allergies/Adverse Reactions: amoxicillin [Amoxicillin] Allergy (Severe, Verified 02/03/18 16:04) Hives levofloxacin [From Levaquin] Allergy (Intermediate, Verified 02/03/18 16:04) kidney pain Review of Systems Constitutional: PRESENT: other - no fever/chills Eyes: PRESENT: other - no visual/hearing changes Cardiovascular: PRESENT: other - no chest pains/cough Gastrointestinal: PRESENT: other - no pains Genitourinary: PRESENT: other - no dysuria Physical Exam Vital Signs: Temp Pulse Resp BP Pulse Ox 98.5 F 89 16 105/44 L 98 01/04/19 17:24 01/04/19 17:24 01/04/19 17:24 01/04/19 17:24 01/04/19 17:24 Intake & Output 01/03/19 01/04/19 01/05/19 06:59 06:59 06:59 Intake Total 500 1000 Balance 500 1000 Weight 59.3 kg General appearance: PRESENT: no acute distress Head exam: PRESENT: atraumatic Eye exam: PRESENT: conjunctiva pink Neck exam: PRESENT: full ROM Pulses: PRESENT: normal radial pulses Vascular exam: PRESENT: normal capillary refill GI/Abdominal exam: PRESENT: soft Rectal exam: PRESENT: deferred Extremities exam: PRESENT: full ROM Musculoskeletal exam: PRESENT: ambulatory Neurological exam: PRESENT: alert, awake, oriented to person, oriented to place, oriented to time, oriented to situation Psychiatric exam: PRESENT: appropriate affect Skin exam: PRESENT: normal color, warm Results Laboratory Results: 01/04/19 12:05 01/04/19 04:26 01/03/19 01/03/19 01/03/19 20:52 20:52 20:52 WBC 9.4 RBC 3.66 L Hgb 11.7 L Hct 33.6 L MCV 92 MCH 32.0 MCHC 34.8 RDW 13.9 Plt Count 339 Seg Neutrophils % 54.8 Lymphocytes % 33.0 Monocytes % 8.7 Eosinophils % 2.3 Basophils % 1.2 Absolute Neutrophils 5.1 Absolute Lymphocytes 3.1 Absolute Monocytes 0.8 Absolute Eosinophils 0.2 Absolute Basophils 0.1 Sodium 139.5 Potassium 3.5 L Chloride 106 Carbon Dioxide 25 Anion Gap 9 BUN 20 Creatinine 0.85 Est GFR ( Amer) > 60 Est GFR (Non-Af Amer) > 60 Glucose 142 H Calcium 9.4 Magnesium Total Bilirubin 0.3 AST 22 ALT 23 Alkaline Phosphatase 56 Total Protein 5.7 L Albumin 3.9 Triglycerides Cholesterol LDL Cholesterol Direct VLDL Cholesterol HDL Cholesterol TSH Free T4 Free T3 pg/mL Blood Type O POSITIVE Antibody Screen NEGATIVE 01/03/19 01/04/19 01/04/19 23:25 04:26 04:26 WBC 18.8 H 12.9 H RBC 3.22 L 3.19 L Hgb 10.3 L 10.2 L Hct 30.0 L 29.2 L MCV 93 92 MCH 32.0 31.9 MCHC 34.4 34.9 RDW 13.5 13.8 Plt Count 230 235 Seg Neutrophils % Lymphocytes % Monocytes % Eosinophils % Basophils % Absolute Neutrophils Absolute Lymphocytes Absolute Monocytes Absolute Eosinophils Absolute Basophils Sodium 140.8 Potassium 4.4 Chloride 109 H Carbon Dioxide 25 Anion Gap 7 BUN 22 H Creatinine 0.60 Est GFR ( Amer) > 60 Est GFR (Non-Af Amer) > 60 Glucose 120 H Calcium 9.2 Magnesium 2.1 Total Bilirubin AST ALT Alkaline Phosphatase Total Protein Albumin Triglycerides 63 Cholesterol 96.52 LDL Cholesterol Direct 54 VLDL Cholesterol 13.0 HDL Cholesterol 42 TSH Free T4 Free T3 pg/mL Blood Type Antibody Screen 01/04/19 01/04/19 04:26 12:05 WBC 9.6 RBC 2.92 L Hgb 9.5 L Hct 27.0 L MCV 92 MCH 32.4 MCHC 35.1 RDW 13.7 Plt Count 220 Seg Neutrophils % Lymphocytes % Monocytes % Eosinophils % Basophils % Absolute Neutrophils Absolute Lymphocytes Absolute Monocytes Absolute Eosinophils Absolute Basophils Sodium Potassium Chloride Carbon Dioxide Anion Gap BUN Creatinine Est GFR ( Amer) Est GFR (Non-Af Amer) Glucose Calcium Magnesium Total Bilirubin AST ALT Alkaline Phosphatase Total Protein Albumin Triglycerides Cholesterol LDL Cholesterol Direct VLDL Cholesterol HDL Cholesterol TSH 1.08 Free T4 1.02 Free T3 pg/mL 3.40 Blood Type Antibody Screen Assessment & Plan - Time Time Spent: 30 to 50 Minutes - Inpatient Certification Medical Necessity: Need Close Monitoring Due to Risk of Patient Decompensation, Need For IV Fluids, Risk of Complication if Not Cared For in Hospital - Plan Summary Plan Summary: Check coagulation Monitor H/H For colonoscopy Sunday
[2019-01-04 20:16] LABS: HEMATOCRIT 25.4 % (36.0-47.0); HEMOGLOBIN 8.9 g/dL (12.0-15.5); MEAN CORPUSCULAR HEMOGLOBIN 32.3 pg (27.0-33.4); MEAN CORPUSCULAR HGB CONC 34.9 g/dL (32.0-36.0); MEAN CORPUSCULAR VOLUME 93 fl (80-97); PLATELET COUNT 214 10^3/uL (150-450); RED BLOOD COUNT 2.75 10^6/uL (3.72-5.28); RED CELL DISTRIBUTION WIDTH 13.8 % (11.5-14.0); WHITE BLOOD COUNT 7.3 10^3/uL (4.0-10.5)
[2019-01-04] MEDS: METOPROLOL SUCCINATE 50 MG TAB.SR.24H PO SCH (21:48)
[2019-01-05] MEDS: POTASSI CL 20 MEQ/D5-1/2NS 1L 1,000 ML IV PRN ×2 (04:40→18:54)
[2019-01-05 06:44] LABS: HEMATOCRIT 27.2 % (36.0-47.0); HEMOGLOBIN 9.6 g/dL (12.0-15.5); MEAN CORPUSCULAR HEMOGLOBIN 32.4 pg (27.0-33.4); MEAN CORPUSCULAR HGB CONC 35.1 g/dL (32.0-36.0); MEAN CORPUSCULAR VOLUME 92 fl (80-97); PLATELET COUNT 229 10^3/uL (150-450); RED BLOOD COUNT 2.95 10^6/uL (3.72-5.28); WHITE BLOOD COUNT 6.9 10^3/uL (4.0-10.5)
[2019-01-05 07:10] LABS: ANION GAP 7 (5-19); BLOOD UREA NITROGEN 13 mg/dL (7-20); CALCIUM 8.9 mg/dL (8.4-10.2); CARBON DIOXIDE 23 mmol/L (22-30); CHLORIDE 113 mmol/L (98-107); GLUCOSE 99 mg/dL (75-110); POTASSIUM 4.3 mmol/L (3.6-5.0); SODIUM 142.8 mmol/L (137-145)
[2019-01-05] MEDS: DILTIAZEM HCL 60 MG TABLET PO SCH (09:06)
[2019-01-05] MEDS: PANTOPRAZOLE SODIUM 40 MG VIAL IV SCH ×2 (09:06→22:02)
[2019-01-05] MEDS: FOLIC ACID 1 MG TABLET PO SCH (09:06)
[2019-01-05] MEDS: ASCORBIC ACID 500 MG TABLET PO SCH (09:06)
[2019-01-05] MEDS: PYRIDOXINE HCL 50 MG TABLET PO SCH (09:07)
[2019-01-05] MEDS: DOCUSATE SODIUM 100 MG CAPSULE PO SCH ×2 (09:07→17:26)
[2019-01-05] MEDS: VITAMIN E (DL, ACETATE) 400 UNIT CAPSULE PO SCH (09:08)
[2019-01-05] MEDS ORDERED: GLUCAGON,HUMAN RECOMB 1 MG INJ SUBCUT PRN (12:07)
[2019-01-05] MEDS ORDERED: DEXTROSE 40% GEL 15 GM TUBE PO PRN ×2 (12:07)
[2019-01-05] MEDS ORDERED: DEXTROSE 50%-WATER 25 GM/50 ML DISP.SYRIN IV PRN ×2 (12:07)
--- NOTE | 2019-01-05 12:11 | PDOC PROGRESS REPORT ---
Subjective Progress Note for:: 01/05/19 Subjective:: No BM today.No pains Reason For Visit: POST POLYPECTOMY RECTAL BLEEDING Physical Exam Vital Signs: Temp Pulse Resp BP Pulse Ox 98.3 F 90 16 142/61 H 99 01/05/19 07:41 01/05/19 07:41 01/05/19 07:41 01/05/19 07:41 01/05/19 07:41 Intake & Output 01/04/19 01/05/19 01/06/19 06:59 06:59 06:59 Intake Total 500 3340 Output Total 460 Balance 500 2880 Weight 59.3 kg 58.5 kg Exam: abdomen is soft and non tender Results Laboratory Results: 01/05/19 05:43 01/05/19 05:43 01/04/19 01/04/19 01/05/19 12:05 20:05 05:43 WBC 9.6 7.3 RBC 2.92 L 2.75 L Hgb 9.5 L 8.9 L Hct 27.0 L 25.4 L MCV 92 93 MCH 32.4 32.3 MCHC 35.1 34.9 RDW 13.7 13.8 Plt Count 220 214 Sodium 142.8 Potassium 4.3 Chloride 113 H Carbon Dioxide 23 Anion Gap 7 BUN 13 Creatinine 0.53 Est GFR ( Amer) > 60 Est GFR (Non-Af Amer) > 60 Glucose 99 Calcium 8.9 Magnesium 2.0 01/05/19 05:43 WBC 6.9 RBC 2.95 L Hgb 9.6 L Hct 27.2 L MCV 92 MCH 32.4 MCHC 35.1 RDW 14.0 Plt Count 229 Sodium Potassium Chloride Carbon Dioxide Anion Gap BUN Creatinine Est GFR ( Amer) Est GFR (Non-Af Amer) Glucose Calcium Magnesium Assessment & Plan - Time Time Spent with patient: 15-24 minutes - Plan Summary Plan Summary: Her HgB is up to 9.6 without blood transfusion Will place on bowel prep for colonoscopy tomorrow
[2019-01-05] MEDS ORDERED: PEG 3350/NA SULF,BICARB,CL/KCL 4000 ML PO ONE (15:00)
--- NOTE | 2019-01-05 16:57 | PDOC PROGRESS REPORT ---
Subjective Progress Note for:: 01/05/19 Subjective:: Doing well. Feel much better since admission. Had BM with dark blood noted. NO bright red blood. Denies lightheadness, dizziness, fevers, chills, CP, SOB, abdominal pain, NV. Tolerating Liquid diet. Family including , son, sister at bedside. Reason For Visit: POST POLYPECTOMY RECTAL BLEEDING Physical Exam Vital Signs: Temp Pulse Resp BP Pulse Ox 98.2 F 99 16 114/49 L 95 01/05/19 15:21 01/05/19 15:21 01/05/19 15:21 01/05/19 15:21 01/05/19 15:21 Intake & Output 01/04/19 01/05/19 01/06/19 06:59 06:59 06:59 Intake Total 500 3340 1490 Output Total 460 Balance 500 2880 1490 Weight 59.3 kg 58.5 kg General appearance: PRESENT: no acute distress, cooperative, well-developed, well-nourished Mouth exam: PRESENT: dry mucosa Cardiovascular exam: PRESENT: +S1, +S2. ABSENT: tachycardia GI/Abdominal exam: PRESENT: normal bowel sounds, soft. ABSENT: tenderness Rectal exam: PRESENT: deferred Extremities exam: PRESENT: full ROM. ABSENT: +1 edema Neurological exam: PRESENT: alert, awake, CN II-XII grossly intact Psychiatric exam: PRESENT: appropriate affect, normal mood Skin exam: PRESENT: dry, intact Results Laboratory Results: 01/05/19 05:43 01/05/19 05:43 01/04/19 01/05/19 01/05/19 20:05 05:43 05:43 WBC 7.3 6.9 RBC 2.75 L 2.95 L Hgb 8.9 L 9.6 L Hct 25.4 L 27.2 L MCV 93 92 MCH 32.3 32.4 MCHC 34.9 35.1 RDW 13.8 14.0 Plt Count 214 229 Sodium 142.8 Potassium 4.3 Chloride 113 H Carbon Dioxide 23 Anion Gap 7 BUN 13 Creatinine 0.53 Est GFR ( Amer) > 60 Est GFR (Non-Af Amer) > 60 Glucose 99 Calcium 8.9 Magnesium 2.0 Assessment & Plan - Diagnosis (1) Lower GI bleed Is this a current diagnosis for this admission?: Yes Plan: Likely a post polypectomy complication which was done 2 weeks ago Plan - Continue Protonix 40mg IV BID for now - Surgery c/s and will do colonoscopy on 01/06 (Dr. Salinas) - H&H stable over last 48 hours - NPO on Sunday night at midnight - GoL[employer] stool prep ordered, split dosing (10PM and then 4AM) (2) CAD (coronary artery disease), samish coronary artery Qualifiers: [place] vs. transplanted heart: samish heart Associated angina: without angina Qualified Code(s): I25.10 - Atherosclerotic heart disease of samish coronary artery without angina pectoris Is this a current diagnosis for this admission?: Yes (3) HLD (hyperlipidemia) Qualifiers: Hyperlipidemia type: unspecified Qualified Code(s): E78.5 - Hyperlipidemia, unspecified Is this a current diagnosis for this admission?: Yes (4) Lightheadedness Is this a current diagnosis for this admission?: Yes - Time Time Spent with patient: Less than 15 minutes Anticipated discharge: Home Within: within 24 hours, within 48 hours
[2019-01-05] MEDS ORDERED: SIMVASTATIN 10 MG TABLET PO SCH (22:00)
[2019-01-05] MEDS: METOPROLOL SUCCINATE 50 MG TAB.SR.24H PO SCH (22:02)
[2019-01-06 05:51] LABS: ANION GAP 5 (5-19); BLOOD UREA NITROGEN 7 mg/dL (7-20); CALCIUM 8.5 mg/dL (8.4-10.2); CARBON DIOXIDE 27 mmol/L (22-30); CHLORIDE 110 mmol/L (98-107); GLUCOSE 103 mg/dL (75-110); POTASSIUM 3.6 mmol/L (3.6-5.0); SODIUM 141.9 mmol/L (137-145)
[2019-01-06] MEDS: POTASSI CL 20 MEQ/D5-1/2NS 1L 1,000 ML IV PRN (06:07)
[2019-01-06] MEDS ORDERED: PEG 3350/NA SULF,BICARB,CL/KCL 4000 ML PO ONE (08:00)
[2019-01-06] MEDS: DOCUSATE SODIUM 100 MG CAPSULE PO SCH ×2 (09:26→17:27)
[2019-01-06] MEDS: FOLIC ACID 1 MG TABLET PO SCH (09:26)
[2019-01-06] MEDS: ASCORBIC ACID 500 MG TABLET PO SCH (09:26)
[2019-01-06] MEDS: VITAMIN E (DL, ACETATE) 400 UNIT CAPSULE PO SCH (09:26)
[2019-01-06] MEDS: PYRIDOXINE HCL 50 MG TABLET PO SCH (09:26)
[2019-01-06] MEDS: PANTOPRAZOLE SODIUM 40 MG VIAL IV SCH (09:32)
[2019-01-06] MEDS ORDERED: PROPOFOL INJ 200 MG/20 ML VIAL IV ONE (13:17)
[2019-01-06] MEDS ORDERED: EPINEPHRINE INJ 1 MG/10 ML DISP.SYRIN ONE (13:22)
[2019-01-06] MEDS ORDERED: MEPERIDINE HCL/PF INJ 25 MG/1 ML DISP.SYRIN IV PRN (14:28)
[2019-01-06] MEDS ORDERED: PROMETHAZINE HCL INJ 25 MG/1 ML VIAL IV PRN ×2 (14:28)
[2019-01-06] MEDS ORDERED: MORPHINE SULFATE 10 MG/ML INJ IV PRN (14:28)
[2019-01-06] MEDS ORDERED: DIPHENHYDRAMINE HCL 50 MG/ML VIAL IV PRN (14:28)
[2019-01-06] MEDS ORDERED: FENTANYL CITRATE INJ/PF 100 MCG/2 ML AMPUL IV PRN ×3 (14:28)
--- NOTE | 2019-01-06 14:30 | Operative Report ---
Operative Report DATE OF SURGERY: 01/06/19 PREOPERATIVE DIAGNOSIS: 1. Post polypectomy gastrointestinal bleeding. 2. Si gmoid diverticulosis POSTOPERATIVE DIAGNOSIS: Same; no evidence of active bleeding; clot in cecum OPERATION: 1. Total colonoscopy to cecum with photodocumentation SURGEON: ENOCH KEYES ANESTHESIA: GA TISSUE REMOVED OR ALTERED: None COMPLICATIONS: None ESTIMATED BLOOD LOSS: None INTRAOPERATIVE FINDINGS: See below PROCEDURE: Obtaining informed consent the patient was taken from the preoperative holding area to the main endoscopy suite where monitoring devices were attached to the patient. Plan and surgical timeout were conducted The patient was placed in the left lateral decubitus position with knees to chest. A perianal examination was performed. There was no visible or palpable anorectal pathology. Sphincter tone was felt to be normal. The flexible adult colonoscope was advanced through the anal rectal canal, all the way to the cecum. Visualization of the cecum was achieved and the ileocecal valve, the appendiceal orifice and transillumination of the anterior abdominal wall; Mild amount of clot on the cecal wall; polypectomy site with no evidence of active bleed eating. This was an excellent study in a well-prepped bowel. The colonoscope was withdrawn slowly and methodically checked and the mucosa carefully. There was no evidence of tumor, stricture, bleeding;; There were scattered diverticulosis of the sigmoid colon. The scope was slowly withdrawn through the anal rectal canal. Complete visualization of the rectum was achieved with photodocumentation. The scope was withdrawn to the patient's anus. The patient tolerated the procedure well and was taken to the recovery area in stable condition. Per surveillance guidelines, patient will be an appropriate candidate for follow-up colonoscopy in 1-3 years pending results of final path report on cecal polyp previously removed by Dr. Deepak Gillespie.
[2019-01-06 16:23] VITALS: BP 128/62
[2019-01-06] MEDS: DILTIAZEM HCL 60 MG TABLET PO SCH (17:27)
--- NOTE | 2019-01-07 12:28 | PDOC DISCHARGE SUMMARY ---
General - Admit/Disc Date/PCP Admission Date/Primary Care Provider: 01/03/19 23:37 MARISOL HENDERSON MD Discharge Date: 01/06/19 - Discharge Diagnosis (1) Lower GI bleed Is this a current diagnosis for this admission?: Yes Summary: This pleasant 78-year-old female experienced post polypectomy hematochezia. She presented to the emergency department with hypotension. Her hemoglobin was 11.7. She was given IV fluids. She was admitted by the hospitalist service. Her hemoglobin did decline over time to a marlen of 8.9. It improved without transfusion to 9.6 on the day of discharge. The patient did undergo colonoscopy which revealed no further evidence of bleeding. The patient's blood pressure normalized. She was quite hungry and thirsty because she was kept n.p.o. for c olonoscopy. With a negative colonoscopy the patient was able to take an oral diet. She was stable. There is no indication for ongoing hospitalization and she was discharged home. - Additional Information Resuscitation Status: Full Code Discharge Diet: As Tolerated, Other (Comments) Discharge Activity: Activity As Tolerated Home Medications: Ascorbic Acid [Vitamin C] 1,000 mg PO DAILY 05/07/17 Aspirin [Aspirin 81 mg Chewable Tablet] 81 mg PO DAILY 05/07/17 Clopidogrel Bisulfate [Plavix 75 mg Tablet] 75 mg PO DAILY 05/07/17 Cyanocobalamin (Vitamin B-12) [Vitamin B-12 1000 mcg Tablet] 1,000 mcg PO DAILY 05/07/17 Diltiazem HCl [Tiazac] 120 mg PO DAILY 05/07/17 Fish Oil/Dha/Epa [Fish Oil 1,200 mg Fish Oil] 1,200 mg PO DAILY 05/07/17 Folic Acid 0.4 mg PO QHS 05/07/17 Metoprolol Succinate [Toprol Xl 50 mg Tab.sr] 50 mg PO QHS 05/07/17 Pyridoxine HCl [Vitamin B-6] 100 mg PO DAILY 05/07/17 Simvastatin [Zocor 10 mg Tablet] 10 mg PO Q2D@2200 05/07/17 Ubidecarenone [Co Q-10] 100 mg PO DAILY 05/07/17 Vitamin E 400 unit PO DAILY 05/07/17 Pantoprazole Sodium [Protonix] 40 mg PO BID #60 tablet. 05/08/17 Gabapentin [Neurontin 300 mg Capsule] 300 mg PO Q12 01/04/19 History of Present Illness Patient complains of: Bright red blood per rectum with lightheadedness. History of Present Illness: MAYA CUBA is a 78 year old female who presented to the emergency department with a complaint of rectal bleeding. 1 week prior to admission the patient did have a colonoscopy with polypectomy. She had not had a bowel movement since. On the day of admission she did have 2 large bowel movements with bright red blood on and in the stool. Upon defecation she felt very weak and dizzy. This happened again with the second bowel movement. Causing concern this prompted her to visit the emergency room. At the time of admission she denied any abdominal pain, nausea and vomiting. She could not identify any precipitating factors except the colonoscopy. Upon evaluation in the emergency department there was still bright red blood per rectum. She was given IV fluids. This corrected the mild hypotension and she was referred to the hospitalist service for admission. Hospital Course Hospital Course: The patient had a benign hospital course. The rectal bleeding stopped spontaneously. Pulse and blood pressures were stable. The patient underwent endoscopy which was negative for any signs of active bleeding or recent bleeding. The patient's hemoglobin began to improve on its own as well. After the conscious sedation wore off the patient was anxious for home. Because she was stable with a negative colonoscopy and improving blood work I felt it was safe for discharge. The patient was discharged home. Physical Exam Vital Signs: Temp Pulse Resp BP Pulse Ox 100.5 F H 101 H 16 128/62 H 97 01/06/19 17:55 01/06/19 17:55 01/06/19 17:55 01/06/19 17:55 01/06/19 17:55 Intake & Output 01/05/19 01/06/19 01/07/19 06:59 06:59 06:59 Intake Total 3340 6490 250 Output Total 460 0 Balance 2880 6490 250 Weight 58.5 kg 58.6 kg General appearance: PRESENT: no acute distress, cooperative Respiratory exam: PRESENT: clear to auscultation kylee. ABSENT: rales, rhonchi, wheezes Cardiovascular exam: PRESENT: RRR, +S1, +S2 GI/Abdominal exam: PRESENT: normal bowel sounds, soft. ABSENT: tenderness Neurological exam: PRESENT: alert, awake, oriented to person, oriented to place, oriented to time, oriented to situation, CN II-XII grossly intact Psychiatric exam: PRESENT: normal mood. ABSENT: agitated, anxious Results Laboratory Results: 01/05/19 05:43 01/06/19 05:21 01/06/19 05:21 Sodium 141.9 Potassium 3.6 Chloride 110 H Carbon Dioxide 27 Anion Gap 5 BUN 7 Creatinine 0.53 Est GFR ( Amer) > 60 Est GFR (Non-Af Amer) > 60 Glucose 103 Calcium 8.5 Magnesium 1.7 Qualifiers - * PATIENT BEING DISCHARGED WITH ANY OF THE FOLLOWING DIAGNOSIS: No Plan Discharge Plan: Follow-up with primary care. Time Spent: Less than 30 Minutes
== END 2019-01-06 18:10 | disposition home or self-care (01) | DRG 921 ==
LOC: ER 20:08 → EH 23:37 → 5 01-04 04:00
PROVIDERS: ADMIT Emergency Medicine; ATTEND Emergency Medicine
PROC: 0DJD8ZZ Inspection of Lower Intestinal Tract, Via Natural or Artificial Opening Endoscopic (ICD-10-PCS; principal; 2019-01-06 13:30)
DX: K91.840 Postprocedural hemorrhage of a digestive system organ or structure following a digestive system procedure (principal); K57.30 Diverticulosis of large intestine without perforation or abscess without bleeding; R42 Dizziness and giddiness; I25.10 Atherosclerotic heart disease of native coronary artery without angina pectoris; E78.5 Hyperlipidemia, unspecified; K21.9 Gastro-esophageal reflux disease without esophagitis; K44.9 Diaphragmatic hernia without obstruction or gangrene; M19.90 Unspecified osteoarthritis, unspecified site; Z79.82 Long term (current) use of aspirin; Z79.899 Other long term (current) drug therapy; Z85.3 Personal history of malignant neoplasm of breast; Z90.11 Acquired absence of right breast and nipple; Z90.49 Acquired absence of other specified parts of digestive tract; Z90.710 Acquired absence of both cervix and uterus; Z87.891 Personal history of nicotine dependence; Z88.1 Allergy status to other antibiotic agents
CPT/HCPCS: 36415; 45378; 80048; 80053; 80061; 811; 83735; 84439; 84443; 84481; 85025; 85027; 85610; 85730; 86850; 86900; 86901; 96360; 99285; J0171; J2704; J3480; J3490; J7040; S0164